=== PATIENT | female | born 1960 | race Caucasian/White ===

== ENCOUNTER 2019-12-06 13:39 | Inpatient (IN) | payer BC, OTHER ==
[~2019-12-06] VITALS: Ht 153.2 cm; Wt 52.2 kg
--- OUTSIDE RECORDS SUMMARY | 2019-12-06 13:42 | XMS REPORT ---
Author Author Remedios Escobar Organization [employer] Address Unknown Phone Unavailable Care Team Providers Care Teller Vault Name Role Phone Ivonne Escobar CP Unavailable Allergies No Known Allergies Problems Problem Type Condition Code Onset Dates Condition Statu s Problem History of right mastectomy Z90.11 Active Problem Smoker F17.200 Active Medications No Known Medications Results No Known Results Summary Purpose [employer] Submission
--- OUTSIDE RECORDS SUMMARY | 2019-12-06 13:42 | XMS REPORT ---
Author Author Remedios Escobar Organization [employer] Address Unknown Phone Unavailable Care Team Providers Care Lime Hide Inspector Name Role Phone Ivonne Escobar CP Unavailable Allergies No Known Allergies Problems Problem Type Condition Code Onset Dates Condition Statu s Problem History of right mastectomy Z90.11 Active Problem Smoker F17.200 Active Medications No Known Medications Results No Known Results Summary Purpose [employer] Submission
--- OUTSIDE RECORDS SUMMARY | 2019-12-06 13:42 | XMS REPORT ---
Author Author Remedios Escobar Organization [employer] Address Unknown Phone Unavailable Care Team Providers Care Spark Tester Name Role Phone Ivonne Escobar CP Unavailable Allergies No Known Allergies Problems Problem Type Condition Code Onset Dates Condition Statu s Problem History of right mastectomy Z90.11 Active Problem Smoker F17.200 Active Medications Medication Code System Code Instructions Start Date End Date Status Dosage Cipro [facility] 22071328910 250 MG Orally twice a day (bid) MarApr 13, 2018 Active 1 tablet Results No Known Results Summary Purpose [employer] Submission
--- OUTSIDE RECORDS SUMMARY | 2019-12-06 13:42 | XMS REPORT ---
Author Author Remedios Escobar Organization [employer] Address Unknown Phone Unavailable Care Team Providers Care Harness Cutter Name Role Phone Ivonne Escobar CP Unavailable Allergies, Adverse Reactions, Alerts Substance Reaction Event Type N.K.D.A. Info Not Available Non Drug Allergy Problems Problem Type Condition Code Onset Dates Condition Statu s Problem History of right mastectomy Z90.11 Active Assessment Dizziness R42 Active Problem Smoker F17.200 Active Assessment Chronic intractable headache, unspecified headache typ e R51 Active Medications Medication Code System Code Instructions Start Date End Date Status Dosage Cipro [facility] 07931617968 250 MG Orally twice a day (bid) MarApr 13, 2018 Active 1 tablet Lecithin [facility] 26286-[address]409 500 MG Orally Active as d irected Vitamin E [facility] 19210457587 200 UNIT Orally Once a day Active 1 capsule Multi For Her 50+ ND 43968511329 - Orally [place] [address] 200 MG Orally Once a day Act shellie 1 capsule with a meal [id number] [facility] 50684307997 1 MG Orally Active as d irected Vital Signs Date/Time: Apr 08, 2018 BMI 20.48 Index Weight 112 lbs Height 62 in Temperature 98.5 F Cardiac Monitoring Heart Rate 83 /min Blood Pressure Diastolic 80 mm Hg Blood Pressure Systolic 122 mm Hg Results No Known Results Summary Purpose [employer]Works Submission
--- OUTSIDE RECORDS SUMMARY | 2019-12-06 13:42 | XMS REPORT | Continuity of Care Document ---
Author Author [employer] Organization [employer] Address Unknown Phone Unavailable Care Team Providers Care Ground Worker Name Role Phone [employer] Unavailable Un available Problems Problem Status Onset Date Classification Date Reported Comments Source History of right mastectomy Ac tive Problem [facility] Smoker Active Problem 04/15/2018 [facility] Dizziness Active Diagnosis 04/11/2018 [facility] Chronic intractable headache, unspecified headache typ e Active Diagnosis 04/11/2018 [facility] Medications Medication Details Route Status Patient Instructions Ordering Provider Order Date Source Cipro 1 tablet Orally Active 250 MG Orally twice a d ay (bid) Gregg Pulido 04/06/2018 [facility] Lecithin as directed Orally Active 500 MG Orally Gregg Pulido [facility] Vitamin E 1 capsule Orally Active 200 UNIT Orally Once a day Gregg Pulido [facility] Multi For Her 50+ not defined Orally Active - Orally Gregg Pulido [facility] Co Q 10 1 capsule with a meal Orally Active 200 MG Orally Once a day Gregg Pulido [facility] [id number] as directed Orally Active 1 MG Orally Gergg Pulido [facility] Allergies, Adverse Reactions, Alerts Substance Category Reaction Severity Reaction type Status Date Reported Comments Source N.K.D.A. Adverse Reaction Info Not Available Adverse Reaction Active 04/08/2018 [facility] Immunizations No Data Provided for This Section Results No Data Provided for This Section Pathology Reports No Data Provided for This Section Diagnostic Reports No Data Provided for This Section Consultation Notes No Data Provided for This Section Discharge Summaries No Data Provided for This Section History and Physicals No Data Provided for This Section Vital Signs Vital Sign Value Date Comments Source Weight 112 04/08/2018 [facility] Height 62 1 [facility] Temperature Oral (F) 98.5 F 04/08/2018 [facility] Heart Rate 83 04/08/2018 [facility] Diastolic (mm Hg) 80 04/08/2018 [facility] Systolic (mm Hg) 122 04/08/2018 [facility] Encounters No Data Provided for This Section Procedures No Data Provided for This Section Assessment and Plan No Data Provided for This Section Plan of Care No Data Provided for This Section Social History No Data Provided for This Section Family History No Data Provided for This Section Advance Directives No Data Provided for This Section Functional Status No Data Provided for This Section
--- OUTSIDE RECORDS SUMMARY | 2019-12-06 13:42 | XMS REPORT ---
Author Author Remedios Escobar Organization [employer] Address Unknown Phone Unavailable Care Team Providers Care Marble Rubber Name Role Phone Ivonne Escobra CP Unavailable Allergies No Known Allergies Problems Problem Type Condition Code Onset Dates Condition Statu s Problem History of right mastectomy Z90.11 Active Problem Smoker F17.200 Active Medications No Known Medications Results No Known Results Summary Purpose [employer]ClinicalWorks Submission
--- OUTSIDE RECORDS SUMMARY | 2019-12-06 13:42 | XMS REPORT | Continuity of Care Document ---
Author Author [facility] t Organization [facility] Address [address] [place] [address] Phone Unavailable Care Team Providers Care Junior Engineer Name Role Phone Unavailable Unavailable Payers Payer Name Policy Type Policy Number Effective Date Expiration Date S ource Problems Condition Name Condition Details Condition Category Status Onset Date Resolution Date Last Treatment Date Treating Clinician Comments Source History of right mastectomy Hi story of right mastectomy Active Problem 04/15/2018 [facility] Problem Active 2018-04-15 02:02:12 Lluvia Aguiar Smoker Smok er Active Problem 04/15/2018 [facility] Problem Active 2018-04-15 02:02:12 Mary Aguiar Dizziness Dizz iness Active Diagnosis 04/11/2018 [facility] Diagnosis Active 2018-04-11 02:02:30 Mary Aguiar Chronic intractable headache, unspecified headache typ e Chronic intractable headache, unspecified headache type Active Diagnosis 04/11/2018 [facility] Diagnosis Active 2018-04-11 02:02:30 Mary Aguiar Allergies, Adverse Reactions, Alerts Allergy Name Allergy Type Status Severity Reaction(s) Onset Date Inacti ve Date Treating Clinician Comments Source N.K.D.A. N.K.D.A. Active Info Not Available 2018-04-08 00:00:00 Mary Aguiar No Known Allergies DA Active U 2010-12-20 00:00:00 [facility] Medications Ordered Medication Name Filled Medication Name Start Date Stop Da te Current Medication? Ordering Clinician Indication Dosage Frequency Signature (SIG) Comments Components Source Lecithin 2018-04-11 02:02:30 Yes Iovnne Pulido as directed Mary Aguiar Vitamin E 2018-04-11 02:02:30 Yes Ivonne Pulido 1 capsule [facility] Multi For Her 50+ 2018-04-11 02:02:30 Yes Ivonne Pulido not defined [facility] Co Q 10 2018-04-11 02:02:30 Yes Ivonne Pulido 1 capsule with a meal [facility] [id number]-[id number] 2018-04-11 02:02:30 Yes Ivonne Pulido as directed [facility] Cipro 2018-04-06 00:00:00 Yes Ivonne Pulido 1 tablet [facility] Vital Signs Vital Name Observation Time Observation Value Comments Source Weight 2018-04-08 14:15:00 [facility] Height 2018-04-08 14:15:00 [facility] Temperature Oral (F) 2018-04-08 14:15:00 98.5 F [facility] Heart Rate 2018-04-08 14:15:00 [facility] Diastolic (mm Hg) 2018-04-08 14:15:00 [facility] Systolic (mm Hg) 2018-04-08 14:15:00 [facility] Procedures This patient has no known procedures. Encounters Start Date/Time End Date/Time Encounter Type Admission Type [facility] Care Department Encounter ID Source 2018-04-11 14:15:00 2018-04-11 14:15:00 [facility] [id number] [facility] 2018-04-10 10:56:00 2018-04-10 10:56:00 [facility] [id number] [facility] 2018-04-08 09:15:00 2018-04-08 09:15:00 [facility] [id number] [employer] 2018-04-04 17:43:00 2018-04-04 17:43:00 [facility] [id number] [employer] 2018-03-21 16:52:00 2018-03-21 16:52:00 [facility] [id number] [facility] Results This patient has no known results.
[2019-12-06] MEDS ORDERED: IBUPROFEN 400 MG TAB PO ONE (15:00)
[2019-12-06] MEDS ORDERED: IBUPROFEN 600 MG TAB ONE (15:03)
--- NOTE | 2019-12-06 15:35 | Emergency Department Note ---
History of Present Illnes History of Present Illness Chief Complaint: Extremity Trauma/Pain History of Present Illness This is a 59 year old female, with a history of hypertension and remote history of breast cancer, who fell while walking down the steps out of the RV, injuring her left knee. The fall occurred just prior to arrival. Patient states that she was stepping out of the RV, when her shoe slipped, causing her left leg to derek, and she fell down, landing on the left knee onto a gravel surface. Patient had pain immediately, and she has been unable to weight-bear on the left leg since the fall. Her spouse had to carry her into the car, and he needed assistance in getting her out of the car once they arrived to the ED. Patient has had no recent fractures, and she does not recall the date of her last bone density. She has had an L2 and L4 vertebral fracture many years ago, that were both related to trauma. She denies any numbness or tingling of the left lower extremity. She states that the "left knee feels tight." Historian: Patient, Family Member (spouse) Arrival Mode: Car Liturgical Music Director Required: No Onset (how long ago): hour(s) (1) Location: left lateral knee Quality: aching, tight, painful Radiation: Reports non-radiation Severity: moderate Onset quality: sudden Duration (how long): hour(s) (1) Timing of current episode: constant Progression: unchanged Chronicity: new Context: Reports trauma/injury (see history of present illness); Denies recent illness, Denies recent surgery, Denies recent immobilization, Denies recent travel, Denies hx of DVT/PE Relieving factors: none Exacerbating factors: movement Associated symptoms: Reports denies other symptoms Treatments prior to arrival: none Risk factors: smoker, post-menopausal Past Medical/Family History Physician Review I have reviewed the patient's past medical and family history. Any updates have been documented here. Past Medical History Recent Fever: No Clinical Suspicion of Infectio: No New/Unexplained Change in Ment: No Past Medical History: Hypertension, Cancer (right breast cancer in 1998status post lumpectomy, chemotherapy, and radiation.) Past Surgical History: Lumpectomy (right breast) Other Surgery: L2 and L4 vertebral fractures Social History Smoking Cessation: Current every day smoker (1/4 pack per day for the past 30 years) Counseling Performed: Yes Alcohol Use: Daily Any Illegal Drug Use: No TB Exposure/Symptoms: No Physically hurt or threatened: No Family History Family history of heart diseas: No Other Last Tetanus: > 5 yrs Any Pre-Existing Lines (PICC,: No Is patient up to date on immun: Yes Review of Systems Review of Systems Constitutional: Denies chills, Denies fever, Denies weakness EENTM: Reports no symptoms Cardiovascular: Denies chest pain, Denies palpitations Respiratory: Reports no symptoms; Denies chest congestion, Denies cough, Denies pain on inspiration Gastrointestinal: Reports no symptoms Genitourinary: Reports no symptoms Musculoskeletal: Reports as per HPI Integumentary: Reports no symptoms Neurological: Reports no symptoms; Denies numbness, Denies paresthesia, Denies tingling Psychological: Reports no symptoms Hematological/Lymphatic: Reports no symptoms Review of other systems: All other systems negative Physical Exam Related Data Allergies: Coded Allergies: No Known Allergies (Unverified , 12/06/19) Vital signs reviewed: Yes Physical Exam CONSTITUTIONAL Constitutional: Present well-developed, Present well-nourished; Absent distressed HENT HENT: Present normocephalic, Present atraumatic, Present oropharynx clear/moist, Present nose normal HENT L/R: Present left ext ear normal, Present right ext ear normal EYES Eyes: Reports PERRL, Reports conjunctivae normal NECK Neck: Present ROM normal; Absent cervical adenopathy PULMONARY Pulmonary: Present effort normal, Present breath sounds normal CARDIOVASCULAR Cardiovascular: Present regular rhythm, Present heart sounds normal, Present intact distal pulses, Present capillary refill normal, Present normal rate GASTROINTESTINAL Abdominal: Present soft, Present nontender, Present bowel sounds normal GENITOURINARY Genitourinary: Present exam deferred SKIN Skin: Present warm, Present dry MUSCULOSKELETAL Musculoskeletal: Present tenderness (tenderness to palpation of the soft tissue of the left knee, especially lateral to the patella), Present swelling (arch ap pearing, spongy hematoma just lateral to the left patella, without warmth or redness, with surrounding soft tissue edema; patient will not flex or extend her left lower extremity to any significant degree; no visible dislocation) NEUROLOGICAL Neurological: Present alert, Present oriented x 3 PSYCHOLOGICAL Psychological: Present mood/affect normal, Present behavior normal, Present judgement normal Results Laboratory Laboratory CBC - normal WBC, H/H; CMP - nl except Cl = 97, Cr = 0.4, BUN = 4; Lab results reviewed: Yes Imaging Imaging results reviewed: Yes Impressions [place] [address] Patient Name: KETTY KING MR #: [id number] : 1960 Age/Sex: 59/F Req #: [id number] Adm Physician: Ordered by: NOE GROSS MD Report #: [id number] [facility] Room/Bed: Procedure: [id number] HOPD/KNEE 3VW LT - HOPD Exam Date: 12/06/19 Exam Time: 1445 REPORT STATUS: Signed Left knee 3 - views HISTORY: Traumatic injury. Fell out of RV COMPARISON: None FINDINGS: A markedly comminuted fracture of the proximal tibial epiphysis with intra-articular extension, and depression of the lateral tibial plateau of approximately 1.5 cm, with lateral displacement of the larger fracture fragment. There is also a displaced fracture of the proximal fibular metadiaphysis. There is a large knee lipohemarthrosis. IMPRESSION: 1. Comminuted intra-articular fracture of the proximal tibial diaphysis with depression of the lateral fracture fragment. 2. Displaced fracture of the proximal fibular metadiaphysis. 3. Large lipohemarthrosis. Signed by: Dr. Stewart Larson M.D. on 12/06/2019 3:48 PM Dictated By: KISHAN LARSON MD, MD [id number] Transcribed By: ELENA on 12/06/19 154 COPY TO: NOE GROSS MD~ [address], [place], [place] [address] Patient Name: KETTY KING MR #: [id number] : 1960 Age/Sex: 59/F Req #: [id number] Adm Physician: Ordered by: NOE GROSS MD Report #: [id number] Location: [facility] Room/Bed: Procedure: [id number] HOPD/CT LOWER EXTEM LT WITH-HOPD Exam Date: 12/06/19 Exam Time: 1635 REPORT STATUS: Signed CT scan of the LEFT KNEE, WITHOUT injected contrast. TECHNIQUE: Standard departmental protocols were used. Sagittal and coronal reformatted images were obtained. DLP: 106.86 Dose reduction techniques used: Automated exposure control, adjustment of the mAs and/or kVp according to patient size, standardized low-dose protocol, and/or iterative reconstruction technique. HISTORY: Trauma. Fractures of the tibia and fibula. COMPARISON: Correlation with X-ray series from the same day. FINDINGS: Bone: Comminuted fracture of the proximal tibial diaphysis with intra-articular extension. There is depression of up to 1.5 cm with lateral displacement of the larger lateral to the lateral fragment. Comminuted fracture of the medial plateau is also displaced to a lesser degree. Extension into the inter-articular spine. A mildly displaced comminuted impaction fracture of the proximal fibular metadiaphysis (fibular neck) is also present. Mild generalized osteopenia. Joint: .Joint spaces are relatively preserved Soft Tissues: There is a large knee lipohemarthrosis. Subcutaneous edema. IMPRESSION: Unremarkable examination. Signed by: Dr. Stewart Larson M.D. on 12/06/2019 5:40 PM Dictated By: KISHAN LARSON MD, MD 39 Transcribed By: ELENA on 12/06/191739 COPY TO: NOE GROSS MD~ Diagnostics Tests Diagnostic test(s) reviewed: Yes Procedures 12 Lead ECG Interpretation ECG Interpretation : ECG: ECG 1 Liturgical Music Director: Interpreted by ED physician Date: Dec 06, 2019 Time: 18:05 Prior ECG tracings: not available for review Rhythm: sinus rhythm Rate: normal BPM: 81 QRS axis: indeterminate ST segments normal: Yes T waves normal: Yes Clinical Impression: abnormal ECG Assessment & Plan Medical Decision Making [facility] 1600case discussed with Dr. Basilio, who reviewed the patient's films and recommended hospital admission for surgical repair in the morning, since patient is unable to stand or utilize crutches, due to the pain as result of the left tibial plateau and fibula fracture. He also recommended CT of the knee, but will assist in surgical management. 1710case discussed with Dr. Tobias Beard, matrix inspector field service consultant, who will admit patient to the hospital and follow with orthopedics. Discuss with the patient and spouse, the significant scalp of her fractures, and patient is agreeable to hospital admission for further management. Assessment & Plan Final Impression: (1) Tibial plateau fracture, left (2) Fibula fracture (3) Fall (4) Hypertension Depart Disposition: ADMITTED Medications in the ED Ibuprofen 600 mg ONCE ONCE PO Last administered on 12/06/19at 14:55; Admin Dose 600 MG; Start 12/06/19 at 15:00; Stop 12/06/19 at 15:02; Status DC Ibuprofen 600 mg STK-MED ONCE .ROUTE ; Start 12/06/19 at 15:03; Stop 12/06/19 at 15:00; Status DC NOE GROSS MD Dec 06, 2019 15:34
[2019-12-06] MEDS ORDERED: HYDROCODONE/APAP 5MG-325MG TAB ONE ×2 (15:44→18:11)
--- NOTE | 2019-12-06 15:51 | Diagnostic Imaging Report ---
Left knee 3 - views HISTORY: Traumatic injury. Fell out of RV COMPARISON: None FINDINGS: A markedly comminuted fracture of the proximal tibial epiphysis with intra-articular extension, and depression of the lateral tibial plateau of approximately 1.5 cm, with lateral displacement of the larger fracture fragment. There is also a displaced fracture of the proximal fibular metadiaphysis. There is a large knee lipohemarthrosis. IMPRESSION: 1. Comminuted intra-articular fracture of the proximal tibial diaphysis with depression of the lateral fracture fragment. 2. Displaced fracture of the proximal fibular metadiaphysis. 3. Large lipohemarthrosis. Signed by: Dr. Stewart Rodgers M.D. on 12/06/2019 3:48 PM
[2019-12-06] MEDS ORDERED: SODIUM CHLORIDE FLUSH 10 ML SYR INJ PRN (17:15)
[2019-12-06] MEDS ORDERED: HYDROMORPHONE 1MG/1ML INJ IV PRN (17:15)
--- NOTE | 2019-12-06 17:32 | NUR ---
ORTHOPEDIC CONSULTATION Discussed case with patient over phone. Patient is a 59 year old community ambulator who had a mechanical fall today and presented to the ED with left lower leg pain. She denies pain in any other extremity. No numbness, paresthesias or loss of distal motor function. Pain localized to knee. Denies pain in any other extremity PMdHx: Breast CA, HTN Alleriges: NKDA SurgHx: Breast CA FamHx: Non-contributory SocHx: 1/3 ppd of Tob Cigarettes, ~ 8 beers a day, No drug use Meds: See Reconciliation Xrays - Comminuted intra-articular Left Bicondylar Tibial Plateau Fracture 59 year old left intra-articular bicondylar displaced left tibial plateau fracture -Plan for arthroscopically assisted open reduction internal fixation of left tibial plateau -NWB -Rest, Ice & Elevation -Analgesics -NPO except meds after midnight -Hold anticoagulation after midnight -IVF while NPO -Follow up CBC, CMP, PT/INR/PTT, Type & Screen, UA, EKG, Chest Xrays, Consent -All questions answered. Kathryn Basilio, DO [facility].
--- NOTE | 2019-12-06 17:43 | Diagnostic Imaging Report ---
CT scan of the LEFT KNEE, WITHOUT injected contrast. TECHNIQUE: Standard departmental protocols were used. Sagittal and coronal reformatted images were obtained. DLP: 106.86 Dose reduction techniques used: Automated exposure control, adjustment of the mAs and/or kVp according to patient size, standardized low-dose protocol, and/or iterative reconstruction technique. HISTORY: Trauma. Fractures of the tibia and fibula. COMPARISON: Correlation with X-ray series from the same day. FINDINGS: Bone: Comminuted fracture of the proximal tibial diaphysis with intra-articular extension. There is depression of up to 1.5 cm with lateral displacement of the larger lateral to the lateral fragment. Comminuted fracture of the medial plateau is also displaced to a lesser degree. Extension into the inter-articular spine. A mildly displaced comminuted impaction fracture of the proximal fibular metadiaphysis (fibular neck) is also present. Mild generalized osteopenia. Joint: .Joint spaces are relatively preserved Soft Tissues: There is a large knee lipohemarthrosis. Subcutaneous edema. IMPRESSION: Unremarkable examination. Signed by: Dr. Stewart Rodgers M.D. on 12/06/2019 5:40 PM
[2019-12-06] MEDS ORDERED: HYDROCODONE/APAP 5MG-325MG TAB PO ONE ×2 (17:45→18:45)
[2019-12-06 18:07] LABS: INR 0.89; PROTHROMBIN TIME 12.6 seconds (11.9-14.5)
[2019-12-06 18:08] LABS: PARTIAL THROMBOPLASTIN TIME 26.5 seconds (23.8-35.5)
[2019-12-06] MEDS ORDERED: ONDANSETRON HCL INJ 2MG/ML 2ML 2 MG/ML VIAL IV NR (19:00)
[2019-12-06] MEDS ORDERED: MORPHINE SULFATE 2 MG/ML SYR 1ML IV NR (19:00)
--- NOTE | 2019-12-06 19:12 | NUR ---
Report to GABRIELLE Rosales
[2019-12-06] MEDS ORDERED: MORPHINE SULFATE INJ 4 MG/ML INJ 1ML ONE (19:38)
[2019-12-06] MEDS ORDERED: ONDANSETRON HCL INJ 2MG/ML 2ML 2 MG/ML VIAL ONE (19:38)
[2019-12-06 20:00] VITALS: BP 109/78
[2019-12-06] MEDS: ONDANSETRON HCL INJ 2MG/ML 2ML 2 MG/ML VIAL IV PRN (20:50)
[2019-12-06 21:10] LABS: BASOPHILS # (AUTO) 0.1 (0.0-0.1); BASOPHILS % 0.6 % (0.0-1.0); EOSINOPHILS # (AUTO) 0.1 (0.0-0.4); EOSINOPHILS % 1.1 % (0.0-6.0); HEMATOCRIT 31.2 % (34.2-44.1); LYMPHOCYTES % 11.5 % (18.0-39.1); MEAN CORPUSCULAR HEMOGLOBIN 36.7 pg (28-32); MEAN CORPUSCULAR HGB CONC 35.3 g/dL (31-35); MONOCYTES # (AUTO) 0.8 (0.2-0.8); MONOCYTES % 8.4 % (4.4-11.3); NEUTROPHILS % 78.1 % (38.7-80.0); PLATELET COUNT 182 x10e3/uL (140-360); RED CELL DISTRIBUTION WIDTH 12.2 % (11.7-14.4)
--- NOTE | 2019-12-06 21:12 | Diagnostic Imaging Report ---
EXAMINATION: CHEST SINGLE (NOT PORTABLE) INDICATION: ^preop ^[id number] ^2024 COMPARISON: None FINDINGS: AP view TUBES and LINES: None. LUNGS: Lungs are well inflated. Minimal left basilar haziness. PLEURA: No pleural effusion or pneumothorax. HEART AND MEDIASTINUM: The cardiomediastinal silhouette is unremarkable. Aorta is mildly calcified and tortuous. BONES AND SOFT TISSUES: No acute osseous lesion. Right axillary surgical clips. UPPER ABDOMEN: No free air under the diaphragm. IMPRESSION: Minimal left basilar haziness, could represent subsegmental atelectasis or developing pneumonia in the appropriate clinical context. Signed by: Dr. Ward Murillo MD on 12/06/2019 9:09 PM
[2019-12-06 21:20] VITALS: BP 128/78
[2019-12-06 21:20] LABS: PARTIAL THROMBOPLASTIN TIME 27.4 seconds (23.8-35.5)
[2019-12-06 21:26] LABS: INR 0.94; PROTHROMBIN TIME 13.1 seconds (11.9-14.5)
[2019-12-06 21:28] LABS: ALBUMIN 3.7 g/dL (3.5-5.0); ALBUMIN/GLOBULIN RATIO 1.2 (0.8-2.0); ALKALINE PHOSPHATASE 64 IU/L (40-150); BLOOD UREA NITROGEN 5 mg/dL (7-26); BUN/CREATININE RATIO 9 (6-25); CALCIUM 9.1 mg/dL (8.4-10.2); CARBON DIOXIDE 20 mmol/L (22-29); CHLORIDE 97 mmol/L (98-107); CREATININE, SERUM 0.56 mg/dL (0.57-1.11); EST GLOMERULAR FILTRATION RATE > 60 ML/MIN (60-); GLUCOSE 125 mg/dL (74-118); SODIUM 131 mmol/L (136-145)
[2019-12-06 21:31] LABS: ALANINE AMINOTRANSFERASE < 6 IU/L (0-55)
--- NOTE | 2019-12-06 21:45 | NUR ---
patient received ordered dilaudid for pain. patient stated nausea and dizziness, patient denies sob, or any related anaphylactic shock s/s, vitals checked bp 128/77, hr 88, oxygen [address] Beard was called and made aware and ordered to stop dilaudid and place order for morphine 2mg q4hrs and also place in order for phenergan 12.5mg iv q6hrs prn. Another nurse was called to come assess patient, no imminent life threatening s/s at this time, bp monitor at bed side and monitoring vitals at bed side.
[2019-12-06] MEDS ORDERED: PROMETHAZINE 12.5MG/ NACL 0.9% 12.5 MG/50 ML BAG IV PRN (22:30)
[2019-12-06] MEDS ORDERED: SODIUM CHLORIDE 0.9% 250ML 250 ML ONE (22:45)
[2019-12-07] VITALS (7 sets, daily range): BP systolic 118–144; BP diastolic 73–86
[2019-12-07] MEDS ORDERED: HEPARIN SOD (PORCINE) 5,000 UNIT/ML VIAL SC ONE (00:30)
[2019-12-07] MEDS: MORPHINE SULFATE 2 MG/ML SYR 1ML IV PRN ×6 (00:54→22:25)
--- NOTE | 2019-12-07 05:50 | NUR ---
H&P cc: fall with fracture HPI: 59yoF, PCP none, had a fall due to tripping; Resulted in fracture. PMH: right breast cancer s/p right lumpectomy and chemoXRT, HTN PSHx: right lumpectomy 1998 Allergies; see emr FH/SH; 1/3ppd cigs; single meds; see MAR ROS: no f/c/s/N/V/D/KAMINSKI/cp/sob/skin rash/back pain/confusion v/s; revd PE tired appearing anicteric ns1s2 mod bs soft nt nd left leg with brace; some leg edema on left leg skin dry flat affect a&ox3; labs/meds revd A/P: 59yoF Elderly fall- PT; check UA Left tibia fx- sx consulted; Oscal; DEXA outpt Left fibula fx- as above Hyponatremia- rehydrate Dehydration- rehydrate Hypochloremia- rehydrate Prop: will need AC after sx dispo: Cardiac for preOp eval; CHeck UA Tobias Beard MD, PhD.
[2019-12-07] MEDS ORDERED: ACETAMINOPHEN 325 MG TAB PO PRN (06:00)
[2019-12-07] MEDS ORDERED: ZOLPIDEM TARTRATE 5 MG TAB PO PRN (06:00)
[2019-12-07] MEDS ORDERED: TRAMADOL HCL 50 MG TAB PO PRN (06:00)
[2019-12-07] MEDS ORDERED: DOCUSATE SODIUM 100 MG CAP PO PRN (06:00)
--- NOTE | 2019-12-07 06:12 | NUR ---
consult to Dr. Camacho called
--- NOTE | 2019-12-07 07:03 | NUR ---
bedside shift report received from equipment scheduler nurse. pt awake, in stable condition, no complaints at this time. will continue to monitor.
[2019-12-07] MEDS: SODIUM CHLORIDE 0.9% 1000ML 1,000 ML IV SCH (07:25)
[2019-12-07 08:18] LABS: CLARITY,URINE CLEAR (CLEAR); COLOR,URINE YELLOW (YELLOW)
[2019-12-07 08:19] LABS: BILIRUBIN,URINE NEGATIVE (NEGATIVE); KETONES,URINE 1+ (NEGATIVE); LEUKOCYTE ESTERASE ,URINE TRACE (NEGATIVE); NITRITE,URINE NEGATIVE (NEGATIVE); PROTEIN,URINE DIPSTICK NEGATIVE (NEGATIVE); URINE UROBILINOGEN 0.2 mg/dL (0.2 - 1)
[2019-12-07 08:34] LABS: BACTERIA,URINE MODERATE /HPF; EPITHELIAL CELLS,URINE MANY /LPF; RBC,URINE 0-5 /HPF (0-5)
[2019-12-07] MEDS: METOPROLOL SUCCINATE 25 MG TAB XL PO SCH (09:26)
[2019-12-07] MEDS: OYST-CAL-D 500MG TABLET PO SCH ×3 (09:27→22:24)
[2019-12-07] MEDS ORDERED: CLONIDINE HCL0.1 MG PO (09:33)
--- NOTE | 2019-12-07 12:48 | Consultation ---
DATE OF CONSULTATION: 12/07/2019 Cardiology Consultation CONSULTING PHYSICIAN: Sukhwinder Angel MD, Interventional Cardiology. REASON FOR CONSULTATION: Perioperative cardiovascular evaluation. HISTORY OF PRESENT ILLNESS: Ms. Caballero is a pleasant 59-year-old woman with history of tobacco abuse, history of breast cancer, status post lumpectomy, chemotherapy and radiation in 1998 to right breast, and hypertension, who presents with mechanical blunt trauma to the left knee after she was walking, stepping out her RV, her shoe slipped and created bending force to the left knee and fall. She was observed to have fractures and has been undergoing evaluation by Orthopedic Surgery for surgical repair for comminuted fracture of proximal tibial diaphysis and intra-articular extension. She has chronic dyspnea on exertion to moderate activity, which has not changed in pattern over the last six months. She smokes a pack every three days. She denies any exertional chest discomfort. She denies any palpitations, syncope or lightheadedness. She denies any orthopnea, lower extremity edema, or paroxysmal nocturnal dyspnea. REVIEW OF SYSTEMS: A 12-system review is otherwise negative except for as noted above. ALLERGIES: NO KNOWN DRUG ALLERGIES. PAST MEDICAL HISTORY: Remarkable for hypertension and breast cancer. SOCIAL HISTORY: Tobacco abuse. Denies drug use. Occasional alcohol use. FAMILY HISTORY: Noncontributory. PHYSICAL EXAMINATION: VITAL SIGNS: Temperature 98.4, heart rate 91, respiratory rate 20, blood pressure 144/77, O2 saturation 96% on room air. GENERAL: No acute distress, alert. NECK: No JVD. No carotid bruits. CHEST: Clear to auscultation. CARDIOVASCULAR: Regular rate and rhythm. Normal S1 and S2. No S3. No S4. No murmurs, no rubs. ABDOMEN: Soft, nondistended. Bowel sounds positive. EXTREMITIES: Left leg edema, immobilized with left knee in place. CARDIOVASCULAR MEDICATIONS: Reviewed. LABORATORY DATA: Studies reviewed. White blood cells 9, hemoglobin 11, platelets 182. INR 0.9, creatinine 0.5, potassium 4, bicarbonate 20. Coronavirus PCR is pending. IMAGING STUDIES: Reviewed. ASSESSMENT: 1. A 59-year-old woman presents with comminuted left tibial fracture extending into knee joint resulting in inability to ambulate. 2. Hypertension. 3. Dyspnea on exertion in the setting of tobacco abuse. 4. Perioperative cardiovascular evaluation. RECOMMENDATIONS: 1. Initiate metoprolol 25 mg daily for perioperative. 2. Given the patient's dyspnea on exertion an echocardiogram has been requested. Moderate risk for adverse cardiovascular outcomes with noncardiac surgery. Further evaluation for dyspnea on exertion postoperatively as outpatient is advised including pulmonary function test and consideration of further cardiac evaluation depending on these findings. No unstable cardiac conditions currently identified. Sukhwinder Angel MD AFMichelle/MODRuthy /[id number]
[2019-12-07] MEDS ORDERED: ROCURONIUM BROMIDE 10 MG/ML 5ML VIAL IV ONE (15:04)
[2019-12-07] MEDS ORDERED: ONDANSETRON HCL INJ 2MG/ML 2ML 2 MG/ML VIAL ONE (15:04)
[2019-12-07] MEDS ORDERED: KETOROLAC TROMETHAMINE 30 MG/ML VIAL ONE (15:04)
[2019-12-07] MEDS ORDERED: PROPOFOL IV EMULSION 10 MG/ML 20 ML VIAL ONE (15:04)
[2019-12-07] MEDS ORDERED: SEVOFLURANE INHAL SOLN 250 ML PEN BTL ONE (15:04)
[2019-12-07] MEDS ORDERED: DEXAMETHASONE SOD PHOS INJ 4 MG/ML VIAL ONE (15:04)
[2019-12-07] MEDS ORDERED: EPHEDRINE SULFATE INJ 50 MG/ML VIAL ONE (15:04)
[2019-12-07] MEDS ORDERED: ACETAMINOPHEN 1000 MG/100 ML IV ONE (15:04)
[2019-12-07] MEDS ORDERED: FENTANYL CITRATE/PF 100MCG/2 ML INJ ONE ×2 (15:16→21:42)
[2019-12-07] MEDS ORDERED: MIDAZOLAM HCL 2 MG/2 ML VIAL ONE (15:16)
--- NOTE | 2019-12-07 17:22 | NUR ---
Patient with tibial plateau fracture and plan for arthroscopically assisted open reduction internal fixation of left tibial plateau with Dr. Basilio. Will hold therapy until after procedure and when new orders received. Will need mobility restrictions, if any, and weight bearing orders. Thank You. Addendum: 12/07/19 at 1724 by JOAQUÍN NEW PT Amended: Links added.
[2019-12-07] MEDS ORDERED: BUPIVACAINE HCL 0.5% INJ 30 ML VIAL INJ ONE (18:10)
--- NOTE | 2019-12-07 18:13 | NUR ---
ORTHOPEDIC CONSULTATION Patient is a 59 year old community ambulator who had a mechanical fall today and presented to the ED with left lower leg pain. She denies pain in any other extremity. No numbness, paresthesias or loss of distal motor function. Pain localized to knee. Denies pain in any other extremity PMdHx: Breast CA, HTN Alleriges: NKDA SurgHx: Breast CA FamHx: Non-contributory SocHx: 1/3 ppd of Tob Cigarettes, ~ 8 beers a day, No drug use Meds: See Reconciliation Gen: AAO x 3, NAD Left Lower Extremity: No open lesions or sores, Positive swelling Motor: + EHL, FHL, TA, G/S Sensation grossly intact to light touch Pulses + DP, Post tib Compartments soft Negative calf tenderness Xrays - Comminuted intra-articular Left Bicondylar Tibial Plateau Fracture 59 year old left intra-articular bicondylar displaced left tibial plateau fracture -Plan for arthroscopically assisted open reduction internal fixation of left tibial plateau -NWB -Rest, Ice & Elevation -Analgesics -NPO except meds after midnight -Hold anticoagulation after midnight -IVF while NPO -Follow up CBC, CMP, PT/INR/PTT, Type & Screen, UA, EKG, Chest Xrays, Consent -All questions answered. Kathryn Basilio, DO [facility].
--- NOTE | 2019-12-07 21:13 | NUR ---
ORTHOPEDICS OPERATIVE NOTE PREOPERATIVE DIAGNOSES: Left Knee Intra-articular Displaced Bicondylar Tibial Plateau Fracture POSTOPERATIVE DIAGNOSES: Left Knee Intra-articular Displaced Bicondylar Tibial Plateau Fracture PROCEDURE: Left Tibial Plateau Open Reduction Internal Fixation, Knee Arthroscopic Tricompartmental Extensive, Debridement Tricompartmental Chondroplasty, and Partial Tricompartmental Synovectomy, Flouroscopic interpretation SURGEON: Kathryn Basilio DO GENERAL MANAGER FARM: NANCY Estrella ANESTHESIA: General COMPLICATIONS: None TOURNIQUET: 120 minutes EBL: Minimal INDICATIONS: Due to persistent pain and limitations on activity combined with findings on exam and imaging, the patient requests surgical treatment. Nonopera tive care and alternative surgical options were reviewed. We agreed that this provided the best risk/benefit profile for this patient, understanding and accepting risks of recurrent/persistent symptoms, infection, bleeding, stiffness, neurological/vascular damage, failure to improve and anesthetic complication (as reviewed by anesthesia service). Also, the patient understands that arthroscopic treatment of articular cartilage lesions provides temporary incomplete relief but that meniscal symptoms should be well addressed. FINDINGS: LEFT Knee Patella Grade 2 Chondromalacia Trochlea - Grade 2 Chondromalacia Lateral Gutter Hematoma & Chondral Debris Medial Gutter Hematoma & Chondral Debris Medial Compartment Femoral - Grade 2 Chondromalacia Tibial - Grade 4 Intra-articular region of chondral loss Medial Meniscus- Intact Cruciate region - Normal Lateral Compartment Femoral -Grade 2 Chondromalacia Tibial -Grade 4 Intra-articular region of chondral loss Lateral Meniscus - Intact Synovium - Hypertrophic & Hyperemic Implant:Krissy Lateral Proximal Tibial Plateau Plate, Cancellous, Cortical and Locking Screws PROCEDURE: With the patient in the supine position with all prominences well padded, general anesthesia was obtained. Sterile prepping and draping were performed. Antibiotics had been given and a time out performed. A lateral S shaped incision was made along the lateral plateau. A submuscular incision down to bone and the lateral musculature was reflected exposing the displaced lateral plateau. The fracture was opened and reduced with a elevator and k wires A bone void was noted and 30 cc of cancellous bone graft and 10 cc of DBM was inserted beneath the fracture site to fill the void and augment healing. Under flouscopic guidance the reduction was obtained and a krissy lateral plateau plate was placed and secured with cortical, cancellous and locking screws. The fracture was found to be stable and in a tolerable position on flouroscopy. The arthroscope was inserted via a small lateral parapatellar tendon incision into the patellofemoral space. Under direct visualization, a medial parapatellar tendon portal was created providing a working portal. Diagnostic arthroscopy was performed and the above findings were noted. Within the patellofemoral space, chondroplasty and extensivie debridement was performed Within the medial compartment, a stable border was demonstrated. There was grade 2-3 chondromalacia, which was debrided to stable borders. Within the intercondylar space, the ACL was visualized and intact The lateral compartment demonstrated a noemL lateral meniscus with grade 2 chondromalacia. This was debrided with an arthroscopic shaver . Chondroplasty was performed on the trochlea to provide a stable border. The joint was extravasated. The incisions were closed ethibond sutures for the fascia, vicryl for the subcutaneous and monocryl for the skin. and more local was injected around the portal sites. Steristrips, Xeroform, 4x4s, ABDs were placed on the portal sites and an Aquacel was placed on the lateral plateau incision and a compressive JASWINDER bandage were applied. The leg was placed in a knee immobilizer. The patient was awakened and transferred to the PACU in satisfactory condition having tolerated the procedure well.
--- NOTE | 2019-12-07 21:40 | NUR ---
RECEIVED REPORT FROM OR.
--- NOTE | 2019-12-07 22:00 | NUR ---
ASSESSMENT DONE.V/S STABLE.AFEBRILE.IV TO LEFT AC IS PATENT.INCISION SITE IS COVERED WITH JASWINDER WRAP.BRACE APPLIED TO LEFT LEG.JELLO GIVEN TO EAT.BED LOCKED AND IN LOWEST POSITION.PHONE AND CALL LIGHT WITHIN REACH.INSTRUCTED TO CALL FOR ASSISTANCE NEEDED.
[2019-12-07] MEDS: ONDANSETRON HCL INJ 2MG/ML 2ML 2 MG/ML VIAL IV PRN (22:25)
[2019-12-07] MEDS: CEFAZOLIN SOD 1 GM/NS 50ML 50 ML IV SCH (22:43)
[2019-12-08] VITALS: BP 139/99
[2019-12-08] MEDS: SODIUM CHLORIDE 0.9% 1000ML 1,000 ML IV SCH (02:00)
[2019-12-08] MEDS: ONDANSETRON HCL INJ 2MG/ML 2ML 2 MG/ML VIAL IV PRN (02:35)
[2019-12-08] MEDS: MORPHINE SULFATE 2 MG/ML SYR 1ML IV PRN ×3 (02:36→13:26)
--- NOTE | 2019-12-08 02:49 | NUR ---
TOLERATES DIET.USES ICS.ELEVATED LOWER EXTREMITY ON PILLOW.INCISION SITE IS DRY.VOIDED BY USING BED PAPPAS.STABLE CONDITION.
[2019-12-08 04:00] VITALS: BP 113/77
[2019-12-08 05:32] LABS: HEMATOCRIT 23.9 % (34.2-44.1); HEMOGLOBIN 8.2 g/dL (12.0-16.0)
[2019-12-08] MEDS: CEFAZOLIN SOD 1 GM/NS 50ML 50 ML IV SCH ×2 (05:43→13:26)
--- NOTE | 2019-12-08 07:09 | NUR ---
BED SIDE SHIFT REPORT GIVEN TO ONCOMING RN.STABLE CONDITION.
--- NOTE | 2019-12-08 07:25 | NUR ---
ORTHOPEDIC PROGRESS NOTE Patient seen & examined resting at bedside. Pain controlled. No acute events overnight VS 98.7 84 18 113/77/ 98% Left Lower Leg In Immobilizer Dressing clean, dry and intact Motor: EHL, FHL, TA, G/S Sensation grossly intact to light touch Pulses + DP, Post tib Compartments soft Negative calf tenderness 8.2/23.9 59 yo F s/p Left Tibial Plateau ORIF POD#1 Analgesics DVT Prophylaxis PT - NWB Left Lower Extremity Switch to ROM Brace May do ROM, CPM encourages Patient orthopedically stable for discharge. Keep dressing until follow up May follow up as outpatient in 2 weeks Recommend Home Health for assistance at home, PT - ROM only. Thank you for the consultation Kathryn Basilio, DO
--- NOTE | 2019-12-08 08:15 | NUR ---
spoke with Dr. Basilio who states pt needs TROM for discharge home; pt otherwise orthopedically stable and can be discharged from his standpoint. spoke with OR nurse who states at this time they only have T-scope braces; paged Dr. Basilio for clarification. awaiting callback.
[2019-12-08 08:20] VITALS: BP 113/77
[2019-12-08] MEDS: OYST-CAL-D 500MG TABLET PO SCH (08:49)
[2019-12-08] MEDS: METOPROLOL SUCCINATE 25 MG TAB XL PO SCH (08:50)
[2019-12-08 08:54] VITALS: BP 122/79
[2019-12-08] MEDS ORDERED: ASPIRIN 325 MG TAB PO SCH (09:00)
--- NOTE | 2019-12-08 09:05 | NUR ---
WENT IN ROOM TO MEET WITH PT ABOUT HOME HEALTH AND HOME P.T. ORDERS PT REALLY DOES NOT WANT HOME HEALTH ; WANTS TO DO IT HERSELF AT HOME P.T. RE-PEPE TODAY POST OP WILL REASSESS AFTER P.T. PEPE NURSE LUCIE WORKING ON GETTING HINGED KNEE BRACE FOR PT CALL PLACED TO DR BARRIGA TO NOTIFY HIM OF PT WISHES CM TO FOLLOW
--- NOTE | 2019-12-08 11:28 | NUR ---
SPOKE WITH DR. MULLEN WHO STATES PT CAN USE T-SCOPE BRACE. WILL APPLY AND HAVE PHYSICAL THERAPY COME EVALUATE PATIENT.
[2019-12-08 11:33] VITALS: BP 112/78
--- NOTE | 2019-12-08 11:38 | NUR ---
D/C summary Principal Dx: Elderly fall- PT; check UA Left tibia fx- sx consulted; Oscal; DEXA outpt Left fibula fx- as above Hyponatremia- rehydrate UTI Dehydration- rehydrate Hypochloremia- rehydrate Secondary Dx: Prop: will need AC after sx dispo: Cardiac for preOp eval; CHeck UA 6-16 s/p ORIF; check urine cx; PT; CM for HH/PT. Pain control meds. d/c home with PT stable d/c>35mins f/u 2-4 days and in 2 weeks Tobias Beard MD, PhD.
[2019-12-08] MEDS ORDERED: ACETAMINOPHEN/CODEINE 300MG - 30MG TAB PO PRN (11:45)
[2019-12-08] MEDS ORDERED: COLACE100 MG PO (11:53)
[2019-12-08] MEDS ORDERED: ULTRAM 50MG50 MG PO (11:53)
[2019-12-08] MEDS ORDERED: TOPROL XL25 MG PO (11:53)
[2019-12-08] MEDS ORDERED: TYLENOL WITH C1 EACH PO (11:53)
[2019-12-08] MEDS ORDERED: KEFLEX500 MG PO (11:56)
--- NOTE | 2019-12-08 11:59 | NUR ---
PT NOW AGREES TO PHYSICAL THERAPY AFTER TALKING TO HER BOYFRIEND VERIFIED ADDRESS AND PHONE NUMBER CORRECT CHOICE LETTER SIGNED FOR [facility] PH [phone] FAX [phone] VERIFIED WITH KYLIE IN INTAKE AT [place] THAT THEY ARE IN NETWORK WITH [employer] EXCHANGE FAXED CLINICALS TO ABOVE FAX CONFIRMATION REC'D ANTICIPATE DC HOME TODAY
[2019-12-08] MEDS ORDERED: ONDANSETRON HCL 4 MG ORAL DISINTEGRATING TAB PO PRN (12:30)
--- NOTE | 2019-12-08 14:30 | NUR ---
CALL BACK FROM KYLIE AT [facility] WHO STATES THEY CANNOT SERVICE PT DUE TO HIGH DEDUCTABLE AND OUT OF POCKET CALLED CECELIA WITH [facility] AT [phone]; HE RAN BENEFITS AND STATES THEY CANNOT TAKE PT EITHER DUE TO ABOVE SPOKE WITH BKEAH AT [facility] [phone]; SHE STATES THEY DO NOT TAKE BLUE CROSS BS EXCHANGE
--- NOTE | 2019-12-08 15:18 | NUR ---
CALLED [facility], THEY ARE ABLE TO ACCEPT HER, WAS IN PROCESS OF GETTING INFORMATION TO THEM AND PT HAD NURSE COME AND DECLINE, SHE HAS AN $8000.00 DEDUCTABLE THAT WOULD HAVE TO BE MET PRIOR TO INSURANCE PAYING. I WENT AND SPOKE WITH HER AND SHE DOES NOT WANT IT, I GAVE THE LIST OF INSURANCES IN NETWORK WITH HER COMPANY IN CASE SHE CHANGES HER MIND.
== END 2019-12-08 16:15 | disposition home or self-care (01) | DRG 488 ==
LOC: FSED 13:39 → ERHOLD 17:18 → MED/SURG 20:11
PROVIDERS: ADMIT Internal Medicine; ATTEND Internal Medicine
PROC: 0SBD0ZZ Excision of Left Knee Joint, Open Approach (ICD-10-PCS; 2019-12-07)
PROC: 0QUH0KZ Supplement Left Tibia with Nonautologous Tissue Substitute, Open Approach (ICD-10-PCS; 2019-12-07)
PROC: 0QSH04Z Reposition Left Tibia with Internal Fixation Device, Open Approach (ICD-10-PCS; principal; 2019-12-07 12:30)
DX: S82.142A Displaced bicondylar fracture of left tibia, initial encounter for closed fracture (principal); E87.1 Hypo-osmolality and hyponatremia; F17.210 Nicotine dependence, cigarettes, uncomplicated; S82.402A Unspecified fracture of shaft of left fibula, initial encounter for closed fracture; Z85.3 Personal history of malignant neoplasm of breast; I10 Essential (primary) hypertension; E87.8 Other disorders of electrolyte and fluid balance, not elsewhere classified; E86.0 Dehydration; W01.0XXA Fall on same level from slipping, tripping and stumbling without subsequent striking against object, initial encounter; R06.02 Shortness of breath; F17.290 Nicotine dependence, other tobacco product, uncomplicated; Z11.59 Encounter for screening for other viral diseases
CPT/HCPCS: 36415; 71045; 76000; 80053; 81001; 81003; 85014; 85018; 85025; 85610; 85730; 86850; 86900; 87086; 87635; 93005; 93306; 93971; 97139; 99284; C1713; J0690; J1100; J1170; J1644; J1885; J2250; J2270; J2405; J2550; J3010; J7030; J7050

== ENCOUNTER 2021-04-01 12:15 | Inpatient (IN) | payer BC, OTHER ==
[~2021-04-01] VITALS: Ht 160 cm; Wt 51.9 kg
[~2021-04-01 12:15] MED LIST: CLONIDINE HCL0.1 MG PO; COLACE100 MG PO; KEFLEX500 MG PO; TOPROL XL25 MG PO; TYLENOL WITH C1 EACH PO; ULTRAM 50MG50 MG PO
[2021-04-01] MEDS ORDERED: IOPAMIDOL 370 MG/ML 200 ML INFUS..BTL INJ ONE (13:04)
[2021-04-01] MEDS ORDERED: SODIUM CHLORIDE 0.9% 50ML 50 ML ONE (13:05)
[2021-04-01] MEDS: ENOXAPARIN SODIUM INJ 100 MG/ML SYR SC SCH (13:24)
[2021-04-01] MEDS ORDERED: ENOXAPARIN SODIUM INJ 100 MG/ML SYR SC ONE (13:30)
[2021-04-01] MEDS ORDERED: CEFEPIME 1 GM in SODIUM CHLORIDE 0.9% 50ML 50 ML IV SCH ×2 (16:00→20:15)
[2021-04-01] MEDS ORDERED: Morphine 2mg Syringe 2 MG/ML SYR IV PRN (17:00)
[2021-04-01] MEDS ORDERED: BISACODYL 10 MG SUPP PR ONE (17:30)
[2021-04-01] MEDS ORDERED: ZOLPIDEM TARTRATE 5 MG TAB PO PRN (17:30)
[2021-04-01] MEDS: METHYLPREDNISOLONE SOD SUCC 40 MG/ML VIAL 1ML IV SCH (20:45)
[2021-04-01] MEDS: HYDROCODONE/APAP 7.5MG-325MG 1 EA TAB PO PRN (20:45)
[2021-04-01 23:00] VITALS: BP 112/70
[2021-04-01 23:17] VITALS: BP 112/70
[2021-04-02] VITALS (10 sets, daily range): BP systolic 116–148; BP diastolic 79–92
[2021-04-02] MEDS: ENOXAPARIN SODIUM INJ 100 MG/ML SYR SC SCH (01:40)
[2021-04-02] MEDS: CEFEPIME 1 GM in SODIUM CHLORIDE 0.9% 50ML 50 ML IV SCH ×2 (04:17→16:25)
[2021-04-02 05:55] LABS: EOSINOPHILS % 0.1 % (0.0-6.0); HEMATOCRIT 32.8 % (34.2-44.1); HEMOGLOBIN 10.6 g/dL (12.0-16.0); LYMPHOCYTES # (AUTO) 0.4 (1.0-3.2); LYMPHOCYTES % 4.7 % (18.0-39.1); MEAN CORPUSCULAR HGB CONC 32.3 g/dL (31-35); MEAN CORPUSCULAR VOLUME 105.1 fL (81-99); MONOCYTES # (AUTO) 0.1 (0.2-0.8); MONOCYTES % 0.6 % (4.4-11.3); NEUTROPHILS # (AUTO) 7.6 (2.1-6.9); NEUTROPHILS % 94.2 % (38.7-80.0); PLATELET COUNT 288 x10e3/uL (140-360); RED BLOOD COUNT 3.12 x10e6/uL (3.6-5.1); RED CELL DISTRIBUTION WIDTH 13.1 % (11.7-14.4)
[2021-04-02 06:53] LABS: CREATINE KINASE MB 0.7 ng/mL (0-5.0)
[2021-04-02 06:54] LABS: ALBUMIN 2.3 g/dL (3.5-5.0); ALBUMIN/GLOBULIN RATIO 0.5 (0.8-2.0); ANION GAP 16.6 mmol/L (8-16); CALCIUM 8.2 mg/dL (8.4-10.2); CREATININE, SERUM 0.49 mg/dL (0.57-1.11); POTASSIUM 4.6 mmol/L (3.5-5.1)
[2021-04-02 08:25] LABS: INR 1.06; PROTHROMBIN TIME 14.2 seconds (11.9-14.5)
[2021-04-02] MEDS: METHYLPREDNISOLONE SOD SUCC 40 MG/ML VIAL 1ML IV SCH ×2 (08:37→21:07)
[2021-04-02 08:49] LABS: LYMPHOCYTES % (MANUAL) 4 % (19-48); MONOCYTES % (MANUAL) 1 % (3.4-9.0); NEUTROPHILS % (MANUAL) 95 % (40-74); PLATELET ESTIMATE ADEQUATE
[2021-04-02 08:50] LABS: PLATELET MORPHOLOGY COMMENT FEW LARGE; RBC MORPHOLOGY COMMENT ABNORMAL
[2021-04-02] MEDS: POLYETHYLENE GLYCOL 3350 17 GM PACK PO SCH ×2 (11:31→16:25)
[2021-04-02] MEDS: DOCUSATE SODIUM 100 MG CAP PO SCH ×2 (11:31→16:25)
[2021-04-02 11:32] LABS: FERRITIN 822.9 ng/mL (4.63-204.00)
[2021-04-02] MEDS ORDERED: HEPARIN 25,000 UNIT DRIP IV ONE (11:39)
[2021-04-02] MEDS: TRAMADOL HCL 50 MG TAB PO PRN (11:58)
[2021-04-02] MEDS: HEPARIN 25,000 UNIT 1,100 UNIT in DEXTROSE 5% 250ML 250 ML IV SCH (12:10)
[2021-04-02] MEDS: HYDROCODONE/APAP 7.5MG-325MG 1 EA TAB PO PRN (12:29)
[2021-04-02] MEDS ORDERED: SODIUM CHLORIDE 0.9% 250ML 250 ML ONE (17:13)
[2021-04-02] MEDS ORDERED: WARFARIN SOD 5 MG TAB PO SCH (17:15)
[2021-04-02 17:49] LABS: ABG HCO3 32 mmol/L (22-26); ABG PCO2 44 mmHg (35-45); ABG PH 7.47 (7.35-7.45); ABG PO2 114 mmHg (80-105); ABG TCO2 34
[2021-04-02] MEDS: Morphine 4mg Syringe 4 MG/ML INJ IV PRN (18:05)
[2021-04-02] MEDS: TRAZODONE HCL 50 MG TAB PO SCH (21:07)
[2021-04-02] MEDS: FLUOXETINE HCL 20 MG CAP PO SCH (21:07)
[2021-04-03] VITALS (25 sets, daily range): BP systolic 123–155; BP diastolic 72–97
[2021-04-03] MEDS: CEFEPIME 1 GM in SODIUM CHLORIDE 0.9% 50ML 50 ML IV SCH ×2 (02:58→15:26)
[2021-04-03] MEDS: GUAIFENESIN/CODEINE 5 ML LIQD PO PRN (02:59)
[2021-04-03] MEDS ORDERED: GUAIFENESIN/CODEINE 5 ML LIQD ONE (03:05)
[2021-04-03 06:38] LABS: ALBUMIN 2.5 g/dL (3.5-5.0); ALBUMIN/GLOBULIN RATIO 0.6 (0.8-2.0); CALCIUM 8.7 mg/dL (8.4-10.2); CREATININE, SERUM 0.48 mg/dL (0.57-1.11)
[2021-04-03] MEDS: ONDANSETRON HCL INJ 2MG/ML 2ML 2 MG/ML VIAL IV PRN (07:19)
[2021-04-03 07:28] LABS: HEMATOCRIT 33.8 % (34.2-44.1); HEMOGLOBIN 11.2 g/dL (12.0-16.0); LYMPHOCYTES # (AUTO) 0.6 (1.0-3.2); LYMPHOCYTES % 6.1 % (18.0-39.1); MEAN CORPUSCULAR HEMOGLOBIN 34.1 pg (28-32); MEAN CORPUSCULAR HGB CONC 33.1 g/dL (31-35); MONOCYTES # (AUTO) 0.1 (0.2-0.8); MONOCYTES % 0.6 % (4.4-11.3); NEUTROPHILS # (AUTO) 8.4 (2.1-6.9); NEUTROPHILS % 92.9 % (38.7-80.0); PLATELET COUNT 303 x10e3/uL (140-360); RED BLOOD COUNT 3.28 x10e6/uL (3.6-5.1); RED CELL DISTRIBUTION WIDTH 12.7 % (11.7-14.4)
[2021-04-03] MEDS: HYDROCODONE/APAP 7.5MG-325MG 1 EA TAB PO PRN (07:29)
[2021-04-03 07:43] LABS: INR 0.93; PROTHROMBIN TIME 12.9 seconds (11.9-14.5)
[2021-04-03 08:20] LABS: LYMPHOCYTES % (MANUAL) 7 % (19-48); NEUTROPHILS % (MANUAL) 93 % (40-74); PLATELET ESTIMATE ADEQUATE; PLATELET MORPHOLOGY COMMENT NORMAL; RBC MORPHOLOGY COMMENT NORMAL
[2021-04-03] MEDS: DOCUSATE SODIUM 100 MG CAP PO SCH ×2 (09:15→16:25)
[2021-04-03] MEDS: METHYLPREDNISOLONE SOD SUCC 40 MG/ML VIAL 1ML IV SCH ×2 (09:15→21:05)
[2021-04-03] MEDS: POLYETHYLENE GLYCOL 3350 17 GM PACK PO SCH ×2 (09:15→16:25)
[2021-04-03] MEDS: METOPROLOL SUCCINATE 25 MG TAB XL PO SCH (10:35)
[2021-04-03] MEDS: HEPARIN 25,000 UNIT 1,100 UNIT in DEXTROSE 5% 250ML 250 ML IV SCH (10:39)
[2021-04-03] MEDS ORDERED: Morphine 4mg Syringe 4 MG/ML INJ IV PRN (11:30)
[2021-04-03] MEDS: TRAMADOL HCL 50 MG TAB PO PRN ×2 (11:30→21:16)
[2021-04-03] MEDS: APIXABAN 5 MG TABLET PO SCH ×2 (11:45→16:25)
[2021-04-03] MEDS ORDERED: METHYLPREDNISOLONE SOD SUCC 125 MG/2ML VIAL IV ONE (14:15)
[2021-04-03] MEDS: Morphine 4mg Syringe 4 MG/ML INJ IV PRN (19:43)
[2021-04-03] MEDS: FLUOXETINE HCL 20 MG CAP PO SCH (21:05)
[2021-04-03] MEDS: TRAZODONE HCL 50 MG TAB PO SCH (21:05)
[2021-04-04] VITALS (22 sets, daily range): BP systolic 114–166; BP diastolic 78–101
[2021-04-04] MEDS: CEFEPIME 1 GM in SODIUM CHLORIDE 0.9% 50ML 50 ML IV SCH ×2 (04:13→15:52)
[2021-04-04] MEDS: ONDANSETRON HCL INJ 2MG/ML 2ML 2 MG/ML VIAL IV PRN ×4 (04:13→22:18)
[2021-04-04 05:51] LABS: ALBUMIN 2.6 g/dL (3.5-5.0); ALBUMIN/GLOBULIN RATIO 0.6 (0.8-2.0); ANION GAP 14.7 mmol/L (8-16); CALCIUM 8.7 mg/dL (8.4-10.2); CREATININE, SERUM 0.48 mg/dL (0.57-1.11); POTASSIUM 3.7 mmol/L (3.5-5.1)
[2021-04-04 07:38] LABS: BASOPHILS % 0.3 % (0.0-1.0); EOSINOPHILS % 0.1 % (0.0-6.0); HEMATOCRIT 33.9 % (34.2-44.1); HEMOGLOBIN 11.2 g/dL (12.0-16.0); LYMPHOCYTES # (AUTO) 0.9 (1.0-3.2); LYMPHOCYTES % 11.4 % (18.0-39.1); MEAN CORPUSCULAR HEMOGLOBIN 34.4 pg (28-32); MONOCYTES # (AUTO) 0.1 (0.2-0.8); MONOCYTES % 0.9 % (4.4-11.3); NEUTROPHILS # (AUTO) 6.9 (2.1-6.9); NEUTROPHILS % 85.9 % (38.7-80.0); PLATELET COUNT 263 x10e3/uL (140-360); RED BLOOD COUNT 3.26 x10e6/uL (3.6-5.1); RED CELL DISTRIBUTION WIDTH 12.6 % (11.7-14.4)
[2021-04-04] MEDS: DOCUSATE SODIUM 100 MG CAP PO SCH ×2 (08:12→17:11)
[2021-04-04] MEDS: METHYLPREDNISOLONE SOD SUCC 40 MG/ML VIAL 1ML IV SCH (08:12)
[2021-04-04] MEDS: APIXABAN 5 MG TABLET PO SCH ×2 (08:13→17:11)
[2021-04-04] MEDS: POLYETHYLENE GLYCOL 3350 17 GM PACK PO SCH ×2 (08:13→17:00)
[2021-04-04] MEDS: METOPROLOL SUCCINATE 25 MG TAB XL PO SCH (08:13)
[2021-04-04] MEDS: GUAIFENESIN/CODEINE 5 ML LIQD PO PRN (08:13)
[2021-04-04] MEDS: HYDROCODONE/APAP 7.5MG-325MG 1 EA TAB PO PRN ×2 (08:31→17:16)
[2021-04-04 10:44] LABS: INR 1.13
[2021-04-04] MEDS: Morphine 4mg Syringe 4 MG/ML INJ IV PRN ×2 (15:57→22:18)
[2021-04-04] MEDS ORDERED: METOPROLOL SUCCINATE 25 MG TAB XL PO NR (20:00)
[2021-04-04] MEDS: TRAMADOL HCL 50 MG TAB PO PRN (20:51)
[2021-04-04] MEDS: FLUOXETINE HCL 20 MG CAP PO SCH (20:51)
[2021-04-04] MEDS: TRAZODONE HCL 50 MG TAB PO SCH (20:51)
[2021-04-04] MEDS ORDERED: FAMOTIDINE 20 MG TAB PO ONE (22:30)
[2021-04-04] MEDS ORDERED: FAMOTIDINE 20 MG TAB ONE (22:32)
[2021-04-04] MEDS ORDERED: LIDOCAINE 4% PATCH TP ONE (22:32)
[2021-04-04] MEDS: LIDOCAINE 4% PATCH TP SCH (22:39)
[2021-04-05] VITALS (17 sets, daily range): BP systolic 123–184; BP diastolic 68–122
[2021-04-05] MEDS: CEFEPIME 1 GM in SODIUM CHLORIDE 0.9% 50ML 50 ML IV SCH ×2 (04:40→16:46)
[2021-04-05] MEDS: ONDANSETRON HCL INJ 2MG/ML 2ML 2 MG/ML VIAL IV PRN ×2 (05:27→14:49)
[2021-04-05] MEDS: Morphine 4mg Syringe 4 MG/ML INJ IV PRN ×2 (05:27→14:49)
[2021-04-05 08:47] LABS: ANION GAP 14.2 mmol/L (8-16); CALCIUM 8.7 mg/dL (8.4-10.2); CREATININE, SERUM 0.51 mg/dL (0.57-1.11); POTASSIUM 3.2 mmol/L (3.5-5.1)
[2021-04-05] MEDS: DOCUSATE SODIUM 100 MG CAP PO SCH ×2 (08:57→16:46)
[2021-04-05] MEDS: LIDOCAINE 4% PATCH TP SCH (08:57)
[2021-04-05] MEDS: POLYETHYLENE GLYCOL 3350 17 GM PACK PO SCH ×2 (08:57→16:46)
[2021-04-05] MEDS: APIXABAN 5 MG TABLET PO SCH ×2 (08:57→16:46)
[2021-04-05] MEDS: METHYLPREDNISOLONE SOD SUCC 40 MG/ML VIAL 1ML IV SCH (08:57)
[2021-04-05] MEDS ORDERED: METOPROLOL SUCCINATE 25 MG TAB XL PO SCH (09:00)
[2021-04-05] MEDS: HYDROCODONE/APAP 7.5MG-325MG 1 EA TAB PO PRN ×2 (09:01→13:52)
[2021-04-05 09:09] LABS: HEMATOCRIT 34.2 % (34.2-44.1); HEMOGLOBIN 11.6 g/dL (12.0-16.0); MEAN CORPUSCULAR HEMOGLOBIN 34.4 pg (28-32); MEAN CORPUSCULAR HGB CONC 33.9 g/dL (31-35); MEAN CORPUSCULAR VOLUME 101.5 fL (81-99); PLATELET COUNT 139 x10e3/uL (140-360); RED BLOOD COUNT 3.37 x10e6/uL (3.6-5.1); RED CELL DISTRIBUTION WIDTH 12.5 % (11.7-14.4)
[2021-04-05] MEDS ORDERED: PROZAC20 MG PO (09:39)
[2021-04-05 10:23] LABS: EOSINOPHILS % (MANUAL) 1 % (0-7); LYMPHOCYTES % (MANUAL) 11 % (19-48); NEUTROPHILS % (MANUAL) 88 % (40-74); PLATELET ESTIMATE SLIGHTLY DECREASED; PLATELET MORPHOLOGY COMMENT FEW LARGE; RBC MORPHOLOGY COMMENT NORMAL
[2021-04-05] MEDS ORDERED: POTASSIUM CHLORIDE 20MEQ/100ML 200 ML IV ONE (10:30)
[2021-04-05 12:18] LABS: INR 1.21; PROTHROMBIN TIME 15.8 seconds (11.9-14.5)
[2021-04-05] MEDS ORDERED: AMLODIPINE BESYLATE 5 MG TAB PO SCH (12:45)
[2021-04-05] MEDS: AMLODIPINE BESYLATE 5 MG TAB PO SCH (13:23)
[2021-04-05] MEDS: HYDRALAZINE HCL 20 MG/ML VIAL IV PRN (14:18)
[2021-04-05] MEDS ORDERED: LORAZEPAM INJ 2 MG/ML VIAL IV PRN (15:45)
[2021-04-05] MEDS ORDERED: MAGNESIUM HYDROXIDE 30 ML UDC PO ONE (16:45)
[2021-04-05 16:59] LABS: ABG PCO2 38 mmHg (35-45); ABG PH 7.51 (7.35-7.45)
[2021-04-05 17:00] LABS: ABG HCO3 31 mmol/L (22-26); ABG PO2 124 mmHg (80-105); ABG TCO2 32
[2021-04-05] MEDS: TRAZODONE HCL 50 MG TAB PO SCH (21:44)
[2021-04-05] MEDS: MELATONIN 3 MG TAB PO SCH (21:44)
[2021-04-05] MEDS: FLUOXETINE HCL 20 MG CAP PO SCH (21:45)
[2021-04-05] MEDS: METOPROLOL SUCCINATE 50 MG TAB XL PO SCH (21:45)
[2021-04-06] VITALS (18 sets, daily range): BP systolic 118–159; BP diastolic 69–94
[2021-04-06] MEDS: CEFEPIME 1 GM in SODIUM CHLORIDE 0.9% 50ML 50 ML IV SCH ×2 (04:12→18:05)
[2021-04-06 04:55] LABS: HEMATOCRIT 30.6 % (34.2-44.1); HEMOGLOBIN 10.5 g/dL (12.0-16.0); MEAN CORPUSCULAR HEMOGLOBIN 33.8 pg (28-32); MEAN CORPUSCULAR HGB CONC 34.3 g/dL (31-35); MEAN CORPUSCULAR VOLUME 98.4 fL (81-99); PLATELET COUNT 70 x10e3/uL (140-360); RED BLOOD COUNT 3.11 x10e6/uL (3.6-5.1); RED CELL DISTRIBUTION WIDTH 12.1 % (11.7-14.4)
[2021-04-06 05:22] LABS: ALBUMIN 2.6 g/dL (3.5-5.0); ALBUMIN/GLOBULIN RATIO 0.7 (0.8-2.0); ANION GAP 16.3 mmol/L (8-16); CALCIUM 8.7 mg/dL (8.4-10.2); CREATININE, SERUM 0.48 mg/dL (0.57-1.11); POTASSIUM 3.3 mmol/L (3.5-5.1)
[2021-04-06 06:17] LABS: LYMPHOCYTES % (MANUAL) 12 % (19-48); NEUTROPHILS % (MANUAL) 88 % (40-74); NUCLEATED RED BLOOD CELLS 1; PLATELET ESTIMATE MODERATELY DECREASED; PLATELET MORPHOLOGY COMMENT NORMAL; RBC MORPHOLOGY COMMENT NORMAL
[2021-04-06] MEDS ORDERED: POTASSIUM CHLORIDE 20MEQ/100ML 100 ML IV ONE (06:45)
[2021-04-06] MEDS: METHYLPREDNISOLONE SOD SUCC 40 MG/ML VIAL 1ML IV SCH (08:05)
[2021-04-06] MEDS: DOCUSATE SODIUM 100 MG CAP PO SCH ×2 (08:05→17:00)
[2021-04-06] MEDS: APIXABAN 5 MG TABLET PO SCH ×2 (08:05→18:05)
[2021-04-06] MEDS: POLYETHYLENE GLYCOL 3350 17 GM PACK PO SCH ×2 (08:05→17:00)
[2021-04-06] MEDS: LIDOCAINE 4% PATCH TP SCH (08:06)
[2021-04-06] MEDS: AMLODIPINE BESYLATE 5 MG TAB PO SCH (08:07)
[2021-04-06] MEDS: METOPROLOL SUCCINATE 50 MG TAB XL PO SCH ×2 (08:07→20:48)
[2021-04-06 10:01] LABS: INR 1.16; PROTHROMBIN TIME 15.3 seconds (11.9-14.5)
[2021-04-06] MEDS: ONDANSETRON HCL INJ 2MG/ML 2ML 2 MG/ML VIAL IV PRN (10:49)
[2021-04-06] MEDS: TRAMADOL HCL 50 MG TAB PO PRN (11:13)
[2021-04-06] MEDS: LOSARTAN POTASSIUM 25 MG TAB PO SCH (13:57)
[2021-04-06] MEDS ORDERED: SODIUM CHLORIDE 0.9% 250ML 250 ML ONE (16:37)
[2021-04-06] MEDS: PROMETHAZINE 12.5MG/ NACL 0.9% 12.5 MG/50 ML BAG IV PRN (19:00)
[2021-04-06] MEDS ORDERED: MAGNESIUM SULFATE 2GM/50ML 50 ML IV ONE ×2 (19:45→20:22)
[2021-04-06] MEDS: TRAZODONE HCL 50 MG TAB PO SCH (20:48)
[2021-04-06] MEDS: MELATONIN 3 MG TAB PO SCH (20:48)
[2021-04-06] MEDS: FLUOXETINE HCL 20 MG CAP PO SCH (20:48)
[2021-04-07] VITALS (25 sets, daily range): BP systolic 102–146; BP diastolic 64–92
[2021-04-07] MEDS: CLONAZEPAM 0.5 MG TAB PO PRN ×2 (00:24→09:40)
[2021-04-07] MEDS: CEFEPIME 1 GM in SODIUM CHLORIDE 0.9% 50ML 50 ML IV SCH ×2 (04:11→16:03)
[2021-04-07 05:04] LABS: BASOPHILS % 0.2 % (0.0-1.0); EOSINOPHILS # (AUTO) 0.1 (0.0-0.4); EOSINOPHILS % 3.1 % (0.0-6.0); HEMATOCRIT 30.8 % (34.2-44.1); HEMOGLOBIN 10.7 g/dL (12.0-16.0); LYMPHOCYTES # (AUTO) 0.9 (1.0-3.2); LYMPHOCYTES % 20.7 % (18.0-39.1); MEAN CORPUSCULAR HGB CONC 34.7 g/dL (31-35); MEAN CORPUSCULAR VOLUME 97.8 fL (81-99); MONOCYTES # (AUTO) 0.3 (0.2-0.8); MONOCYTES % 7.1 % (4.4-11.3); NEUTROPHILS % 67.8 % (38.7-80.0); RED BLOOD COUNT 3.15 x10e6/uL (3.6-5.1)
[2021-04-07 05:06] LABS: PLATELET COUNT 32 x10e3/uL (140-360)
[2021-04-07 05:42] LABS: ALBUMIN 2.8 g/dL (3.5-5.0); ALBUMIN/GLOBULIN RATIO 0.7 (0.8-2.0); ANION GAP 16.1 mmol/L (8-16); CREATININE, SERUM 0.54 mg/dL (0.57-1.11); MAGNESIUM 1.8 MG/DL (1.3-2.1); POTASSIUM 3.1 mmol/L (3.5-5.1)
[2021-04-07 05:57] LABS: PHOSPHORUS 2.6 MG/DL (2.3-4.7)
[2021-04-07 06:32] LABS: FREE THYROXINE INDEX 2.1547 (1.4-3.8); THYROID STIMULATING HORMONE 1.872 uIU/mL (0.350-4.940)
[2021-04-07] MEDS: DOCUSATE SODIUM 100 MG CAP PO SCH ×2 (08:07→16:03)
[2021-04-07] MEDS: AMLODIPINE BESYLATE 5 MG TAB PO SCH (08:08)
[2021-04-07] MEDS: APIXABAN 5 MG TABLET PO SCH ×2 (08:08→16:03)
[2021-04-07] MEDS: POLYETHYLENE GLYCOL 3350 17 GM PACK PO SCH ×2 (08:08→16:03)
[2021-04-07] MEDS: LOSARTAN POTASSIUM 25 MG TAB PO SCH (08:08)
[2021-04-07] MEDS: METOPROLOL SUCCINATE 50 MG TAB XL PO SCH ×2 (08:08→21:36)
[2021-04-07] MEDS: PROMETHAZINE 12.5MG/ NACL 0.9% 12.5 MG/50 ML BAG IV PRN (08:08)
[2021-04-07] MEDS: LIDOCAINE 4% PATCH TP SCH (08:12)
[2021-04-07] MEDS ORDERED: POTASSIUM CHLORIDE 20MEQ/100ML 100 ML IV STA (09:28)
[2021-04-07] MEDS: TRAMADOL HCL 50 MG TAB PO PRN ×2 (09:40→17:40)
[2021-04-07] MEDS ORDERED: POTASSIUM CHLORIDE 20MEQ/100ML 100 ML IV ONE (09:45)
[2021-04-07 10:26] LABS: INR 1.2; PROTHROMBIN TIME 15.7 seconds (11.9-14.5)
[2021-04-07] MEDS ORDERED: MULTIVITAMINS- 12 INJECTION 10 ML, FOLIC ACID MDV 1 MG, THIAMINE HCL INJ 100 MG in SODI... IV ONE (11:30)
[2021-04-07 13:13] LABS: CHOL/HDL RATIO 4.3 (3.0-3.6)
[2021-04-07] MEDS ORDERED: LACTULOSE SYRUP 20 GM/30 ML UDC PO ONE (13:45)
[2021-04-07] MEDS ORDERED: CHLORDIAZEPOXIDE HCL 10 MG CAP PO SCH (17:00)
[2021-04-07] MEDS: ONDANSETRON HCL INJ 2MG/ML 2ML 2 MG/ML VIAL IV PRN ×2 (17:24→21:50)
[2021-04-07] MEDS: TRAZODONE HCL 50 MG TAB PO SCH (21:35)
[2021-04-07] MEDS: FLUOXETINE HCL 20 MG CAP PO SCH (21:35)
[2021-04-07] MEDS: MELATONIN 3 MG TAB PO SCH (21:35)
[2021-04-08] VITALS (25 sets, daily range): BP systolic 116–146; BP diastolic 71–89
[2021-04-08] MEDS: CLONAZEPAM 0.5 MG TAB PO PRN ×2 (02:36→18:20)
[2021-04-08] MEDS ORDERED: DONNATAL/LIDOCAINE/MAALOX 30 ML SUSP PO ONE (03:15)
[2021-04-08] MEDS: Pantoprazole IV 40 MG in SODIUM CHLORIDE 0.9% 50ML 50 ML IV SCH ×5 (03:17→23:27)
[2021-04-08] MEDS: CEFEPIME 1 GM in SODIUM CHLORIDE 0.9% 50ML 50 ML IV SCH ×2 (03:21→16:50)
[2021-04-08] MEDS: METOCLOPRAMIDE HCL 10 MG/2ML VIAL IV SCH ×4 (03:21→23:27)
[2021-04-08] MEDS ORDERED: LIDOCAINE VISC 2% SOLN 15 ML UDC ONE (03:26)
[2021-04-08] MEDS ORDERED: MAGNESIUM/ALUMINUM/SIMETHICONE 30 ML UDC ONE (03:26)
[2021-04-08] MEDS ORDERED: BELLADONNA ALK/PHENOBARBITAL 5 ML UDC ONE (03:28)
[2021-04-08 05:04] LABS: BASOPHILS % 0.3 % (0.0-1.0); EOSINOPHILS # (AUTO) 0.1 (0.0-0.4); HEMATOCRIT 26.8 % (34.2-44.1); HEMOGLOBIN 9.4 g/dL (12.0-16.0); LYMPHOCYTES # (AUTO) 0.9 (1.0-3.2); LYMPHOCYTES % 29.2 % (18.0-39.1); MEAN CORPUSCULAR HEMOGLOBIN 33.7 pg (28-32); MEAN CORPUSCULAR HGB CONC 35.1 g/dL (31-35); MEAN CORPUSCULAR VOLUME 96.1 fL (81-99); MONOCYTES # (AUTO) 0.4 (0.2-0.8); MONOCYTES % 14.3 % (4.4-11.3); NEUTROPHILS # (AUTO) 1.6 (2.1-6.9); NEUTROPHILS % 53.9 % (38.7-80.0); RED BLOOD COUNT 2.79 x10e6/uL (3.6-5.1); RED CELL DISTRIBUTION WIDTH 11.8 % (11.7-14.4)
[2021-04-08 05:18] LABS: PLATELET COUNT 20 x10e3/uL (140-360)
[2021-04-08 05:34] LABS: ALBUMIN 2.6 g/dL (3.5-5.0); ALBUMIN/GLOBULIN RATIO 0.8 (0.8-2.0); ANION GAP 13.7 mmol/L (8-16); CREATININE, SERUM 0.48 mg/dL (0.57-1.11); MAGNESIUM 1.3 MG/DL (1.3-2.1)
[2021-04-08 05:36] LABS: POTASSIUM 2.7 mmol/L (3.5-5.1)
[2021-04-08] MEDS: POTASSIUM CHLORIDE 20MEQ/100ML 100 ML IV SCH ×2 (08:46→10:43)
[2021-04-08] MEDS: LIDOCAINE 4% PATCH TP SCH (08:47)
[2021-04-08] MEDS: LOSARTAN POTASSIUM 25 MG TAB PO SCH (08:47)
[2021-04-08] MEDS: POLYETHYLENE GLYCOL 3350 17 GM PACK PO SCH ×2 (08:47→16:51)
[2021-04-08] MEDS: DOCUSATE SODIUM 100 MG CAP PO SCH ×2 (08:47→16:51)
[2021-04-08] MEDS ORDERED: SODIUM CHLORIDE 0.9% 100 ML ONE ×2 (10:25→15:44)
[2021-04-08 10:37] LABS: INR 1.25; PROTHROMBIN TIME 16.2 seconds (11.9-14.5)
[2021-04-08] MEDS: ONDANSETRON HCL INJ 2MG/ML 2ML 2 MG/ML VIAL IV PRN ×2 (11:12→20:59)
[2021-04-08] MEDS: METOPROLOL SUCCINATE 50 MG TAB XL PO SCH ×2 (12:40→20:58)
[2021-04-08] MEDS ORDERED: POTASSIUM CHLORIDE 20MEQ/100ML 200 ML IV SCH (13:00)
[2021-04-08] MEDS: TRAMADOL HCL 50 MG TAB PO PRN (13:59)
[2021-04-08] MEDS ORDERED: POTASSIUM CHLORIDE 20MEQ/100ML 200 ML IV ONE (20:00)
[2021-04-08] MEDS ORDERED: SODIUM CHLORIDE 0.9% 50ML 50 ML ONE (20:11)
[2021-04-08] MEDS: MELATONIN 3 MG TAB PO SCH (20:58)
[2021-04-08] MEDS: FLUOXETINE HCL 20 MG CAP PO SCH (20:58)
[2021-04-08] MEDS: TRAZODONE HCL 50 MG TAB PO SCH (20:58)
[2021-04-09] VITALS (15 sets, daily range): BP systolic 116–157; BP diastolic 74–92
[2021-04-09] MEDS: CEFEPIME 1 GM in SODIUM CHLORIDE 0.9% 50ML 50 ML IV SCH ×2 (04:11→15:10)
[2021-04-09] MEDS: Pantoprazole IV 40 MG in SODIUM CHLORIDE 0.9% 50ML 50 ML IV SCH ×4 (04:11→20:04)
[2021-04-09] MEDS: METOCLOPRAMIDE HCL 10 MG/2ML VIAL IV SCH ×3 (05:10→17:03)
[2021-04-09 05:50] LABS: EOSINOPHILS # (AUTO) 0.1 (0.0-0.4); EOSINOPHILS % 3.2 % (0.0-6.0); HEMATOCRIT 27.9 % (34.2-44.1); HEMOGLOBIN 9.7 g/dL (12.0-16.0); LYMPHOCYTES # (AUTO) 0.6 (1.0-3.2); LYMPHOCYTES % 33.7 % (18.0-39.1); MEAN CORPUSCULAR HEMOGLOBIN 33.6 pg (28-32); MEAN CORPUSCULAR HGB CONC 34.8 g/dL (31-35); MEAN CORPUSCULAR VOLUME 96.5 fL (81-99); MONOCYTES # (AUTO) 0.4 (0.2-0.8); MONOCYTES % 21.6 % (4.4-11.3); NEUTROPHILS # (AUTO) 0.8 (2.1-6.9); NEUTROPHILS % 41.5 % (38.7-80.0); RED BLOOD COUNT 2.89 x10e6/uL (3.6-5.1)
[2021-04-09 05:54] LABS: PLATELET COUNT 35 x10e3/uL (140-360)
[2021-04-09 06:05] LABS: INR 1.18; PROTHROMBIN TIME 15.5 seconds (11.9-14.5)
[2021-04-09 06:12] LABS: ANION GAP 14.5 mmol/L (8-16); CALCIUM 8.3 mg/dL (8.4-10.2); CREATININE, SERUM 0.51 mg/dL (0.57-1.11); POTASSIUM 3.5 mmol/L (3.5-5.1)
[2021-04-09] MEDS: DOCUSATE SODIUM 100 MG CAP PO SCH ×2 (08:48→16:21)
[2021-04-09] MEDS: LIDOCAINE 4% PATCH TP SCH (08:48)
[2021-04-09] MEDS: POLYETHYLENE GLYCOL 3350 17 GM PACK PO SCH ×2 (08:48→16:21)
[2021-04-09] MEDS: LOSARTAN POTASSIUM 25 MG TAB PO SCH (08:48)
[2021-04-09] MEDS: FILGRASTIM 300 MCG/ML VIAL SC SCH (09:44)
[2021-04-09] MEDS: METOPROLOL SUCCINATE 50 MG TAB XL PO SCH ×2 (10:08→20:55)
[2021-04-09] MEDS: CLONAZEPAM 0.5 MG TAB PO PRN (14:20)
[2021-04-09] MEDS: MELATONIN 3 MG TAB PO SCH (20:04)
[2021-04-09] MEDS: TRAZODONE HCL 50 MG TAB PO SCH (20:04)
[2021-04-09] MEDS: FLUOXETINE HCL 20 MG CAP PO SCH (20:04)
[2021-04-10] VITALS (8 sets, daily range): BP systolic 107–128; BP diastolic 76–89
[2021-04-10] MEDS: METOCLOPRAMIDE HCL 10 MG/2ML VIAL IV SCH ×5 (00:02→23:25)
[2021-04-10] MEDS: Pantoprazole IV 40 MG in SODIUM CHLORIDE 0.9% 50ML 50 ML IV SCH ×5 (00:02→21:23)
[2021-04-10] MEDS: CEFEPIME 1 GM in SODIUM CHLORIDE 0.9% 50ML 50 ML IV SCH ×2 (04:00→16:25)
[2021-04-10] MEDS: ONDANSETRON HCL INJ 2MG/ML 2ML 2 MG/ML VIAL IV PRN (05:08)
[2021-04-10] MEDS ORDERED: SODIUM CHLORIDE 0.9% 250ML 250 ML ONE (05:20)
[2021-04-10 05:37] LABS: BASOPHILS % 0.3 % (0.0-1.0); EOSINOPHILS % 1.4 % (0.0-6.0); HEMATOCRIT 26.2 % (34.2-44.1); HEMOGLOBIN 9.2 g/dL (12.0-16.0); LYMPHOCYTES # (AUTO) 0.9 (1.0-3.2); LYMPHOCYTES % 30.8 % (18.0-39.1); MEAN CORPUSCULAR HEMOGLOBIN 33.7 pg (28-32); MEAN CORPUSCULAR HGB CONC 35.1 g/dL (31-35); MONOCYTES # (AUTO) 0.5 (0.2-0.8); MONOCYTES % 17.5 % (4.4-11.3); NEUTROPHILS # (AUTO) 1.3 (2.1-6.9); NEUTROPHILS % 44.2 % (38.7-80.0); RED BLOOD COUNT 2.73 x10e6/uL (3.6-5.1)
[2021-04-10 05:56] LABS: ALBUMIN 2.5 g/dL (3.5-5.0); ALBUMIN/GLOBULIN RATIO 0.7 (0.8-2.0); ANION GAP 16.2 mmol/L (8-16); CALCIUM 8.1 mg/dL (8.4-10.2); CREATININE, SERUM 0.48 mg/dL (0.57-1.11); POTASSIUM 3.2 mmol/L (3.5-5.1)
[2021-04-10 06:27] LABS: PLATELET COUNT 23 x10e3/uL (140-360)
[2021-04-10 08:21] LABS: BAND NEUTROPHILS % (MANUAL) 4 %; EOSINOPHILS % (MANUAL) 1 % (0-7); LYMPHOCYTES % (MANUAL) 21 % (19-48); MONOCYTES % (MANUAL) 18 % (3.4-9.0); NEUTROPHILS % (MANUAL) 56 % (40-74)
[2021-04-10 08:22] LABS: PLATELET ESTIMATE MARKEDLY DECREASED; PLATELET MORPHOLOGY COMMENT NORMAL; RBC MORPHOLOGY COMMENT NORMAL
[2021-04-10] MEDS: ACETAMINOPHEN 325 MG TAB PO PRN ×2 (08:58→18:03)
[2021-04-10] MEDS: LOSARTAN POTASSIUM 25 MG TAB PO SCH (08:59)
[2021-04-10] MEDS: FILGRASTIM 300 MCG/ML VIAL SC SCH (09:00)
[2021-04-10] MEDS: METOPROLOL SUCCINATE 50 MG TAB XL PO SCH ×2 (09:00→21:24)
[2021-04-10] MEDS: DOCUSATE SODIUM 100 MG CAP PO SCH ×2 (09:00→16:25)
[2021-04-10] MEDS: LIDOCAINE 4% PATCH TP SCH (09:00)
[2021-04-10] MEDS: POLYETHYLENE GLYCOL 3350 17 GM PACK PO SCH ×2 (09:00→16:25)
[2021-04-10] MEDS ORDERED: POTASSIUM CHLORIDE 20 MEQ TAB CR PO STA (09:35)
[2021-04-10] MEDS ORDERED: MAGNESIUM SULFATE 2GM/50ML 50 ML IV ONE (10:30)
[2021-04-10 11:34] LABS: INR 1.26; PROTHROMBIN TIME 16.3 seconds (11.9-14.5)
[2021-04-10] MEDS: CLONAZEPAM 0.5 MG TAB PO PRN (18:03)
[2021-04-10] MEDS: TRAZODONE HCL 50 MG TAB PO SCH (21:23)
[2021-04-10] MEDS: FLUOXETINE HCL 20 MG CAP PO SCH (21:23)
[2021-04-10] MEDS: MELATONIN 3 MG TAB PO SCH (21:23)
[2021-04-10] MEDS ORDERED: METHYLPREDNISOLONE SOD SUCC 40 MG/ML VIAL 1ML IV ONE (22:45)
[2021-04-10] MEDS: ALBUTEROL/IPRATROPIUM 3 ML NEB NEB SCH (23:23)
[2021-04-10] MEDS: DOXYCYCLINE HYCLATE TABLET 100 MG TAB PO SCH (23:25)
[2021-04-11] VITALS (13 sets, daily range): BP systolic 82–153; BP diastolic 58–98
[2021-04-11] MEDS: Pantoprazole IV 40 MG in SODIUM CHLORIDE 0.9% 50ML 50 ML IV SCH ×5 (01:14→22:23)
[2021-04-11] MEDS: ACETAMINOPHEN 325 MG TAB PO PRN ×3 (01:15→17:40)
[2021-04-11] MEDS: ALBUTEROL/IPRATROPIUM 3 ML NEB NEB SCH ×6 (04:46→22:31)
[2021-04-11] MEDS: CEFEPIME 1 GM in SODIUM CHLORIDE 0.9% 50ML 50 ML IV SCH ×2 (04:47→17:29)
[2021-04-11] MEDS: CLONAZEPAM 0.5 MG TAB PO PRN ×2 (05:09→15:08)
[2021-04-11 05:48] LABS: BASOPHILS # (AUTO) 0.1 (0.0-0.1); BASOPHILS % 1.1 % (0.0-1.0); HEMATOCRIT 27.6 % (34.2-44.1); LYMPHOCYTES # (AUTO) 0.9 (1.0-3.2); LYMPHOCYTES % 11.8 % (18.0-39.1); MEAN CORPUSCULAR HEMOGLOBIN 34.2 pg (28-32); MEAN CORPUSCULAR HGB CONC 36.2 g/dL (31-35); MEAN CORPUSCULAR VOLUME 94.5 fL (81-99); MONOCYTES # (AUTO) 0.9 (0.2-0.8); MONOCYTES % 11.8 % (4.4-11.3); NEUTROPHILS # (AUTO) 5.7 (2.1-6.9); NEUTROPHILS % 74.8 % (38.7-80.0); RED BLOOD COUNT 2.92 x10e6/uL (3.6-5.1); RED CELL DISTRIBUTION WIDTH 12.2 % (11.7-14.4)
[2021-04-11 05:57] LABS: PLATELET COUNT 14 x10e3/uL (140-360)
[2021-04-11 06:18] LABS: ALBUMIN 2.7 g/dL (3.5-5.0); ALBUMIN/GLOBULIN RATIO 0.7 (0.8-2.0); ANION GAP 17.9 mmol/L (8-16); CALCIUM 8.4 mg/dL (8.4-10.2); CREATININE, SERUM 0.55 mg/dL (0.57-1.11); MAGNESIUM 1.7 MG/DL (1.3-2.1); POTASSIUM 3.9 mmol/L (3.5-5.1)
[2021-04-11] MEDS: METOCLOPRAMIDE HCL 10 MG/2ML VIAL IV SCH ×3 (06:30→17:30)
[2021-04-11] MEDS: LOSARTAN POTASSIUM 25 MG TAB PO SCH (08:17)
[2021-04-11] MEDS: DOCUSATE SODIUM 100 MG CAP PO SCH ×2 (08:17→17:00)
[2021-04-11] MEDS: POLYETHYLENE GLYCOL 3350 17 GM PACK PO SCH ×2 (08:18→17:00)
[2021-04-11] MEDS: FILGRASTIM 300 MCG/ML VIAL SC SCH (08:19)
[2021-04-11] MEDS: DOXYCYCLINE HYCLATE TABLET 100 MG TAB PO SCH ×2 (08:19→17:30)
[2021-04-11] MEDS: METOPROLOL SUCCINATE 50 MG TAB XL PO SCH ×2 (08:19→21:00)
[2021-04-11] MEDS: LIDOCAINE 4% PATCH TP SCH (08:20)
[2021-04-11 09:28] LABS: BAND NEUTROPHILS % (MANUAL) 6 %; LYMPHOCYTES % (MANUAL) 10 % (19-48); MONOCYTES % (MANUAL) 10 % (3.4-9.0); NEUTROPHILS % (MANUAL) 72 % (40-74); NUCLEATED RED BLOOD CELLS 1; PROMYELOCYTES % (MANUAL) 1 % (0-0)
[2021-04-11 09:29] LABS: PLATELET ESTIMATE MARKEDLY DECREASED; PLATELET MORPHOLOGY COMMENT NORMAL; RBC MORPHOLOGY COMMENT NORMAL; TOXIC GRANULATION MODERATE
[2021-04-11 10:28] LABS: INR 1.42; PROTHROMBIN TIME 17.9 seconds (11.9-14.5)
[2021-04-11] MEDS ORDERED: HEPARIN 25,000 UNIT 1,100 UNIT in DEXTROSE 5% 250ML 250 ML IV SCH (11:15)
[2021-04-11] MEDS ORDERED: ENOXAPARIN SOD INJ 40 MG/0.4 ML SYR SC SCH (11:45)
[2021-04-11] MEDS ORDERED: SODIUM CHLORIDE 0.9% 250ML 250 ML ONE ×2 (13:06→15:52)
[2021-04-11] MEDS: ONDANSETRON HCL INJ 2MG/ML 2ML 2 MG/ML VIAL IV PRN (14:15)
[2021-04-11 15:53] LABS: ABG HCO3 23 mmol/L (22-26); ABG PCO2 29 mmHg (35-45); ABG PH 7.51 (7.35-7.45); ABG PO2 62 mmHg (80-105); ABG TCO2 24
[2021-04-11 16:51] LABS: BASOPHILS # (AUTO) 0.1 (0.0-0.1); BASOPHILS % 0.8 % (0.0-1.0); HEMATOCRIT 26.6 % (34.2-44.1); HEMOGLOBIN 9.3 g/dL (12.0-16.0); LYMPHOCYTES # (AUTO) 0.9 (1.0-3.2); LYMPHOCYTES % 6.2 % (18.0-39.1); MEAN CORPUSCULAR HEMOGLOBIN 33.8 pg (28-32); MEAN CORPUSCULAR VOLUME 96.7 fL (81-99); MONOCYTES # (AUTO) 1.4 (0.2-0.8); MONOCYTES % 9.5 % (4.4-11.3); NEUTROPHILS # (AUTO) 12.1 (2.1-6.9); NEUTROPHILS % 82.4 % (38.7-80.0); PLATELET COUNT 61 x10e3/uL (140-360); RED BLOOD COUNT 2.75 x10e6/uL (3.6-5.1); RED CELL DISTRIBUTION WIDTH 12.6 % (11.7-14.4)
[2021-04-11] MEDS ORDERED: IOPAMIDOL 370 MG/ML 200 ML INFUS..BTL INJ ONE (16:51)
[2021-04-11] MEDS ORDERED: SODIUM CHLORIDE 0.9% 50ML 50 ML ONE (16:51)
[2021-04-11] MEDS: FUROSEMIDE INJ 10 MG/ML 4 ML VIAL IV SCH (17:29)
[2021-04-11] MEDS ORDERED: DEXMEDETOMIDINE 400MCG/NS100ML 100 ML IV ONE (18:37)
[2021-04-11] MEDS: HEPARIN 25,000 UNIT 1,100 UNIT in DEXTROSE 5% 250ML 250 ML IV SCH (19:30)
[2021-04-11] MEDS: TRAZODONE HCL 50 MG TAB PO SCH (21:00)
[2021-04-11] MEDS: FLUOXETINE HCL 20 MG CAP PO SCH (21:00)
[2021-04-11] MEDS: MELATONIN 3 MG TAB PO SCH (21:00)
[2021-04-12] VITALS (24 sets, daily range): BP systolic 67–182; BP diastolic 50–105
[2021-04-12] MEDS: ALBUTEROL/IPRATROPIUM 3 ML NEB NEB SCH ×6 (02:01→22:45)
[2021-04-12] MEDS ORDERED: SODIUM CHLORIDE 0.9% 50ML 50 ML ONE (03:46)
[2021-04-12] MEDS ORDERED: IOPAMIDOL 370 MG/ML 200 ML INFUS..BTL INJ ONE (03:46)
[2021-04-12] MEDS: Pantoprazole IV 40 MG in SODIUM CHLORIDE 0.9% 50ML 50 ML IV SCH ×5 (05:12→22:00)
[2021-04-12] MEDS: DEXMEDETOMIDINE 400MCG/NS100ML 100 ML IV PRN ×2 (05:12→09:18)
[2021-04-12] MEDS: METOCLOPRAMIDE HCL 10 MG/2ML VIAL IV SCH ×4 (05:47→18:00)
[2021-04-12] MEDS: FUROSEMIDE INJ 10 MG/ML 4 ML VIAL IV SCH (08:24)
[2021-04-12] MEDS ORDERED: POTASSIUM CHLORIDE 20 MEQ TAB CR PO STA (08:25)
[2021-04-12] MEDS: CLONAZEPAM 0.5 MG TAB PO PRN ×2 (08:25→21:15)
[2021-04-12] MEDS ORDERED: MAGNESIUM SULFATE 2GM/50ML 50 ML IV ONE (08:30)
[2021-04-12 08:42] LABS: ABG HCO3 28 mmol/L (22-26); ABG PCO2 38 mmHg (35-45); ABG PH 7.48 (7.35-7.45); ABG PO2 91 mmHg (80-105); ABG TCO2 29
[2021-04-12] MEDS: LOSARTAN POTASSIUM 25 MG TAB PO SCH (09:00)
[2021-04-12] MEDS: METOPROLOL SUCCINATE 50 MG TAB XL PO SCH ×2 (09:00→09:45)
[2021-04-12] MEDS: DOCUSATE SODIUM 100 MG CAP PO SCH ×2 (09:00→17:00)
[2021-04-12] MEDS: POLYETHYLENE GLYCOL 3350 17 GM PACK PO SCH ×2 (09:12→09:29)
[2021-04-12 09:18] LABS: BASOPHILS # (AUTO) 0.1 (0.0-0.1); BASOPHILS % 0.6 % (0.0-1.0); EOSINOPHILS % 0.1 % (0.0-6.0); HEMATOCRIT 24.2 % (34.2-44.1); HEMOGLOBIN 8.5 g/dL (12.0-16.0); LYMPHOCYTES # (AUTO) 1.2 (1.0-3.2); LYMPHOCYTES % 8.6 % (18.0-39.1); MEAN CORPUSCULAR HGB CONC 35.1 g/dL (31-35); MEAN CORPUSCULAR VOLUME 96.8 fL (81-99); MONOCYTES % 7.1 % (4.4-11.3); NEUTROPHILS # (AUTO) 11.7 (2.1-6.9); NEUTROPHILS % 80.8 % (38.7-80.0); PLATELET COUNT 65 x10e3/uL (140-360); RED CELL DISTRIBUTION WIDTH 12.7 % (11.7-14.4)
[2021-04-12] MEDS: DOXYCYCLINE HYCLATE TABLET 100 MG TAB PO SCH (09:28)
[2021-04-12 09:38] LABS: MAGNESIUM 1.2 MG/DL (1.3-2.1); PHOSPHORUS 2.6 MG/DL (2.3-4.7)
[2021-04-12] MEDS ORDERED: SUCCINYLCHOLINE CHLORIDE 20 MG/ML 10ML VIAL ONE (09:38)
[2021-04-12] MEDS ORDERED: ETOMIDATE 2 MG/ML 10 ML INJ IV ONE (09:38)
[2021-04-12] MEDS ORDERED: MIDAZOLAM HCL 2 MG/2 ML VIAL ONE (09:38)
[2021-04-12 09:40] LABS: ALBUMIN 2.6 g/dL (3.5-5.0); ALBUMIN/GLOBULIN RATIO 0.7 (0.8-2.0); ANION GAP 16.2 mmol/L (8-16); CALCIUM 8.2 mg/dL (8.4-10.2); CREATININE, SERUM 0.54 mg/dL (0.57-1.11); POTASSIUM 3.2 mmol/L (3.5-5.1)
[2021-04-12] MEDS: NOREPINEPHRINE 8 MG/D5W 250 ML 250 ML IV SCH (09:45)
[2021-04-12 10:00] LABS: INR 1.14; PROTHROMBIN TIME 15.1 seconds (11.9-14.5)
[2021-04-12] MEDS ORDERED: POTASSIUM CHLORIDE 20MEQ/100ML 200 ML IV ONE ×2 (10:00→16:00)
[2021-04-12] MEDS: ACETAMINOPHEN 325 MG TAB PO PRN ×2 (11:30→13:41)
[2021-04-12] MEDS ORDERED: Vancomycin IV 1 GM in SODIUM CHLORIDE 0.9% 250ML 250 ML IV SCH (12:00)
[2021-04-12] MEDS: MEROPENEM 500 MG in SODIUM CHLORIDE 0.9% 50ML 50 ML IV SCH ×2 (12:59→16:10)
[2021-04-12] MEDS ORDERED: ALBUMIN 25% 25GM 100ML 0.25 GM/ML BTL IV ONE (14:45)
[2021-04-12] MEDS ORDERED: ALBUMIN 25% 25GM 100ML 100 ML IV ONE (15:00)
[2021-04-12] MEDS: LIDOCAINE 4% PATCH TP SCH (15:51)
[2021-04-12] MEDS: HEPARIN 25,000 UNIT 1,100 UNIT in DEXTROSE 5% 250ML 250 ML IV SCH (19:30)
[2021-04-12] MEDS: MELATONIN 3 MG TAB PO SCH (21:36)
[2021-04-12] MEDS: TRIMETHOPRIM/SULFAMETHOXAZOLE 40MG/5ML SUSP GT SCH (21:36)
[2021-04-12] MEDS: TRAZODONE HCL 50 MG TAB PO SCH (21:36)
[2021-04-12] MEDS: FLUOXETINE HCL 20 MG CAP PO SCH (21:36)
[2021-04-12] MEDS: HYDRALAZINE HCL 20 MG/ML VIAL IV PRN (22:55)
[2021-04-12] MEDS ORDERED: PROPOFOL IV EMULSION 10MG/ML 100 ML ONE (23:50)
[2021-04-13] VITALS (23 sets, daily range): BP systolic 61–136; BP diastolic 36–79
[2021-04-13 00:11] LABS: ABG PCO2 41 mmHg (35-45); ABG PH 7.41 (7.35-7.45); ABG PO2 89 mmHg (80-105)
[2021-04-13 00:12] LABS: ABG HCO3 26 mmol/L (22-26); ABG TCO2 27
[2021-04-13] MEDS ORDERED: METHYLPREDNISOLONE SOD SUCC 125 MG/2ML VIAL IV ONE (00:15)
[2021-04-13] MEDS ORDERED: LORAZEPAM INJ 2 MG/ML VIAL IV ONE (00:15)
[2021-04-13] MEDS ORDERED: LORAZEPAM INJ 2 MG/ML VIAL ONE ×2 (00:18→00:22)
[2021-04-13] MEDS: PROPOFOL IV EMULSION 10MG/ML 100 ML IV PRN ×2 (00:20→10:45)
[2021-04-13] MEDS ORDERED: METHYLPREDNISOLONE SOD SUCC 40 MG/ML VIAL 1ML ONE (00:22)
[2021-04-13] MEDS: LORAZEPAM INJ 2 MG/ML VIAL IV PRN (00:30)
[2021-04-13 00:47] LABS: ANION GAP 17.5 mmol/L (8-16); CALCIUM 8.1 mg/dL (8.4-10.2); CREATININE, SERUM 0.65 mg/dL (0.57-1.11); POTASSIUM 3.5 mmol/L (3.5-5.1)
[2021-04-13] MEDS: MEROPENEM 500 MG in SODIUM CHLORIDE 0.9% 50ML 50 ML IV SCH ×5 (02:02→23:54)
[2021-04-13] MEDS: ALBUTEROL/IPRATROPIUM 3 ML NEB NEB SCH ×2 (02:50→07:15)
[2021-04-13] MEDS: Pantoprazole IV 40 MG in SODIUM CHLORIDE 0.9% 50ML 50 ML IV SCH ×5 (06:32→23:54)
[2021-04-13] MEDS: METOCLOPRAMIDE HCL 10 MG/2ML VIAL IV SCH ×4 (06:32→17:10)
[2021-04-13 06:59] LABS: POTASSIUM 3.6 mmol/L (3.5-5.1)
[2021-04-13 07:00] LABS: ALBUMIN 3.1 g/dL (3.5-5.0); ALBUMIN/GLOBULIN RATIO 0.9 (0.8-2.0); ANION GAP 19.6 mmol/L (8-16); CALCIUM 8.1 mg/dL (8.4-10.2); CREATININE, SERUM 0.78 mg/dL (0.57-1.11)
[2021-04-13 07:09] LABS: BASOPHILS # (AUTO) 0.1 (0.0-0.1); BASOPHILS % 0.5 % (0.0-1.0); EOSINOPHILS % 0.1 % (0.0-6.0); HEMOGLOBIN 7.3 g/dL (12.0-16.0); LYMPHOCYTES # (AUTO) 0.7 (1.0-3.2); LYMPHOCYTES % 6.2 % (18.0-39.1); MEAN CORPUSCULAR HEMOGLOBIN 34.6 pg (28-32); MEAN CORPUSCULAR HGB CONC 35.4 g/dL (31-35); MEAN CORPUSCULAR VOLUME 97.6 fL (81-99); MONOCYTES # (AUTO) 0.5 (0.2-0.8); MONOCYTES % 4.9 % (4.4-11.3); NEUTROPHILS # (AUTO) 8.9 (2.1-6.9); RED BLOOD COUNT 2.11 x10e6/uL (3.6-5.1); RED CELL DISTRIBUTION WIDTH 12.8 % (11.7-14.4)
[2021-04-13 07:14] LABS: HEMATOCRIT 20.6 % (34.2-44.1); PLATELET COUNT 38 x10e3/uL (140-360)
[2021-04-13] MEDS ORDERED: ALBUTEROL/IPRATROPIUM 3 ML NEB NEB PRN (09:00)
[2021-04-13] MEDS: POLYETHYLENE GLYCOL 3350 17 GM PACK PO SCH ×2 (09:00→16:41)
[2021-04-13] MEDS: DOCUSATE SODIUM 100 MG CAP PO SCH ×2 (09:00→16:41)
[2021-04-13] MEDS: METOPROLOL SUCCINATE 50 MG TAB XL PO SCH (09:00)
[2021-04-13 09:30] LABS: ABG HCO3 25 mmol/L (22-26); ABG PCO2 32 mmHg (35-45); ABG PH 7.51 (7.35-7.45); ABG PO2 108 mmHg (80-105); ABG TCO2 26
[2021-04-13] MEDS: NOREPINEPHRINE 8 MG/D5W 250 ML 250 ML IV SCH (10:19)
[2021-04-13] MEDS: TRIMETHOPRIM/SULFAMETHOXAZOLE 40MG/5ML SUSP GT SCH ×2 (11:39→21:00)
[2021-04-13] MEDS ORDERED: LIDOCAINE HCL 4% 50 ML BTL ONE (12:06)
[2021-04-13] MEDS ORDERED: LIDOCAINE HCL 2% JELLY 5 ML TUBE ONE (12:06)
[2021-04-13] MEDS ORDERED: HEPARIN 25,000 UNIT 1,100 UNIT in DEXTROSE 5% 250ML 250 ML IV PRN (18:45)
[2021-04-13] MEDS: HEPARIN 25,000 UNIT 1,100 UNIT in DEXTROSE 5% 250ML 250 ML IV SCH (19:04)
[2021-04-13] MEDS: FLUOXETINE HCL 20 MG CAP PO SCH (21:47)
[2021-04-13] MEDS: TRAZODONE HCL 50 MG TAB PO SCH (21:47)
[2021-04-14] VITALS (13 sets, daily range): BP systolic 101–125; BP diastolic 40–65
[2021-04-14] MEDS: METOCLOPRAMIDE HCL 10 MG/2ML VIAL IV SCH ×5 (00:07→23:24)
[2021-04-14] MEDS: Pantoprazole IV 40 MG in SODIUM CHLORIDE 0.9% 50ML 50 ML IV SCH ×5 (04:33→23:24)
[2021-04-14 05:55] LABS: BASOPHILS # (AUTO) 0.1 (0.0-0.1); BASOPHILS % 0.5 % (0.0-1.0); HEMOGLOBIN 7.3 g/dL (12.0-16.0); MEAN CORPUSCULAR HEMOGLOBIN 35.1 pg (28-32); MEAN CORPUSCULAR HGB CONC 36.9 g/dL (31-35); MEAN CORPUSCULAR VOLUME 95.2 fL (81-99); MONOCYTES # (AUTO) 1.7 (0.2-0.8); MONOCYTES % 8.4 % (4.4-11.3); NEUTROPHILS # (AUTO) 15.1 (2.1-6.9); NEUTROPHILS % 75.8 % (38.7-80.0); RED BLOOD COUNT 2.08 x10e6/uL (3.6-5.1); RED CELL DISTRIBUTION WIDTH 13.1 % (11.7-14.4)
[2021-04-14] MEDS: MEROPENEM 500 MG in SODIUM CHLORIDE 0.9% 50ML 50 ML IV SCH ×4 (06:03→23:24)
[2021-04-14 06:06] LABS: HEMATOCRIT 19.8 % (34.2-44.1); PLATELET COUNT 42 x10e3/uL (140-360)
[2021-04-14 06:32] LABS: ALBUMIN 2.7 g/dL (3.5-5.0); ALBUMIN/GLOBULIN RATIO 0.8 (0.8-2.0); ANION GAP 14.5 mmol/L (8-16); CALCIUM 8.2 mg/dL (8.4-10.2); CREATININE, SERUM 0.62 mg/dL (0.57-1.11); MAGNESIUM 1.9 MG/DL (1.3-2.1); PHOSPHORUS 1.6 MG/DL (2.3-4.7); POTASSIUM 3.5 mmol/L (3.5-5.1)
[2021-04-14] MEDS: METOPROLOL SUCCINATE 50 MG TAB XL PO SCH (07:29)
[2021-04-14] MEDS ORDERED: MAGNESIUM SULFATE 2GM/50ML 50 ML IV ONE (08:15)
[2021-04-14] MEDS ORDERED: SODIUM PHOSPHATE IN 0.9 % NACL 30 MMOL in SODIUM CHLORIDE 0.9% 250ML 250 ML IV ONE ×2 (08:15)
[2021-04-14 08:55] LABS: LYMPHOCYTES % (MANUAL) 4 % (19-48); MONOCYTES % (MANUAL) 4 % (3.4-9.0); NEUTROPHILS % (MANUAL) 92 % (40-74)
[2021-04-14 08:56] LABS: PLATELET ESTIMATE MODERATELY DECREASED; PLATELET MORPHOLOGY COMMENT FEW LARGE; RBC MORPHOLOGY COMMENT NORMAL
[2021-04-14 08:59] LABS: ABG PCO2 34 mmHg (35-45); ABG PH 7.53 (7.35-7.45); ABG PO2 75 mmHg (80-105)
[2021-04-14] MEDS: DOCUSATE SODIUM 100 MG CAP PO SCH (09:00)
[2021-04-14] MEDS: POLYETHYLENE GLYCOL 3350 17 GM PACK PO SCH ×2 (09:00→14:41)
[2021-04-14 09:01] LABS: ABG HCO3 28 mmol/L (22-26); ABG TCO2 29
[2021-04-14] MEDS: TRIMETHOPRIM/SULFAMETHOXAZOLE 40MG/5ML SUSP GT SCH ×2 (09:07→21:00)
[2021-04-14] MEDS: NOREPINEPHRINE 8 MG/D5W 250 ML 250 ML IV SCH (09:45)
[2021-04-14] MEDS: IRON SUCROSE 100 MG in SODIUM CHLORIDE 0.9% 100 ML 100 ML IV SCH (11:30)
[2021-04-14] MEDS: PROPOFOL IV EMULSION 10MG/ML 100 ML IV PRN ×2 (13:50→18:26)
[2021-04-14] MEDS ORDERED: LORAZEPAM INJ 2 MG/ML VIAL IV ONE (14:30)
[2021-04-14] MEDS ORDERED: METHYLPREDNISOLONE SOD SUCC 125 MG/2ML VIAL IV ONE (14:45)
[2021-04-14] MEDS: SODIUM CHLORIDE 1 GM TAB NG SCH ×2 (15:26→23:23)
[2021-04-14] MEDS: HEPARIN 25,000 UNIT 1,100 UNIT in DEXTROSE 5% 250ML 250 ML IV SCH (19:32)
[2021-04-14] MEDS: TRAZODONE HCL 50 MG TAB PO SCH (23:23)
[2021-04-14] MEDS: FLUOXETINE HCL 20 MG CAP PO SCH (23:23)
[2021-04-15] VITALS (18 sets, daily range): BP systolic 80–133; BP diastolic 40–97
[2021-04-15] MEDS: METOCLOPRAMIDE HCL 10 MG/2ML VIAL IV SCH ×3 (06:20→17:21)
[2021-04-15] MEDS: MEROPENEM 500 MG in SODIUM CHLORIDE 0.9% 50ML 50 ML IV SCH ×3 (06:20→17:20)
[2021-04-15] MEDS: Pantoprazole IV 40 MG in SODIUM CHLORIDE 0.9% 50ML 50 ML IV SCH ×4 (06:20→19:07)
[2021-04-15 06:23] LABS: BASOPHILS # (AUTO) 0.1 (0.0-0.1); BASOPHILS % 0.3 % (0.0-1.0); HEMOGLOBIN 7.2 g/dL (12.0-16.0); LYMPHOCYTES # (AUTO) 1.5 (1.0-3.2); LYMPHOCYTES % 8.9 % (18.0-39.1); MEAN CORPUSCULAR HEMOGLOBIN 35.1 pg (28-32); MEAN CORPUSCULAR HGB CONC 35.8 g/dL (31-35); MONOCYTES % 6.1 % (4.4-11.3); NEUTROPHILS # (AUTO) 13.1 (2.1-6.9); NEUTROPHILS % 78.3 % (38.7-80.0); RED BLOOD COUNT 2.05 x10e6/uL (3.6-5.1); RED CELL DISTRIBUTION WIDTH 13.5 % (11.7-14.4)
[2021-04-15 06:28] LABS: HEMATOCRIT 20.1 % (34.2-44.1); PLATELET COUNT 45 x10e3/uL (140-360)
[2021-04-15 06:42] LABS: ALBUMIN 2.5 g/dL (3.5-5.0); ALBUMIN/GLOBULIN RATIO 0.6 (0.8-2.0); ANION GAP 13.3 mmol/L (8-16); CREATININE, SERUM 0.58 mg/dL (0.57-1.11); POTASSIUM 3.3 mmol/L (3.5-5.1)
[2021-04-15 07:09] LABS: LYMPHOCYTES % (MANUAL) 6 % (19-48); METAMYELOCYTES % (MANUAL) 1 % (0-0); MONOCYTES % (MANUAL) 6 % (3.4-9.0); NEUTROPHILS % (MANUAL) 86 % (40-74); PLATELET ESTIMATE MODERATELY DECREASED; PLATELET MORPHOLOGY COMMENT NORMAL; PROMYELOCYTES % (MANUAL) 1 % (0-0); RBC MORPHOLOGY COMMENT NORMAL
[2021-04-15] MEDS: TRIMETHOPRIM/SULFAMETHOXAZOLE 40MG/5ML SUSP GT SCH ×2 (08:27→21:00)
[2021-04-15] MEDS: SODIUM CHLORIDE 1 GM TAB NG SCH ×3 (08:27→22:31)
[2021-04-15] MEDS: POLYETHYLENE GLYCOL 3350 17 GM PACK PO SCH ×2 (08:27→17:20)
[2021-04-15 08:53] LABS: ABG HCO3 31 mmol/L (22-26); ABG PCO2 38 mmHg (35-45); ABG PH 7.52 (7.35-7.45); ABG PO2 62 mmHg (80-105); ABG TCO2 32
[2021-04-15] MEDS: METOPROLOL SUCCINATE 50 MG TAB XL PO SCH (09:00)
[2021-04-15] MEDS ORDERED: POTASSIUM CHLORIDE 20MEQ/100ML 200 ML IV ONE (11:00)
[2021-04-15] MEDS: IRON SUCROSE 100 MG in SODIUM CHLORIDE 0.9% 100 ML 100 ML IV SCH (11:53)
[2021-04-15] MEDS: HEPARIN 25,000 UNIT 1,100 UNIT in DEXTROSE 5% 250ML 250 ML IV SCH (17:22)
[2021-04-15] MEDS ORDERED: HEPARIN 25,000 UNIT DRIP IV ONE (17:29)
[2021-04-15] MEDS: PROPOFOL IV EMULSION 10MG/ML 100 ML IV PRN (19:08)
[2021-04-15] MEDS: NOREPINEPHRINE 8 MG/D5W 250 ML 250 ML IV SCH (22:30)
[2021-04-15] MEDS: TRAZODONE HCL 50 MG TAB PO SCH (22:31)
[2021-04-15] MEDS: FLUOXETINE HCL 20 MG CAP PO SCH (22:31)
[2021-04-16] VITALS (15 sets, daily range): BP systolic 92–130; BP diastolic 24–72
[2021-04-16] MEDS: MEROPENEM 500 MG in SODIUM CHLORIDE 0.9% 50ML 50 ML IV SCH ×5 (00:12→23:45)
[2021-04-16] MEDS: METOCLOPRAMIDE HCL 10 MG/2ML VIAL IV SCH ×5 (00:12→23:54)
[2021-04-16] MEDS: Pantoprazole IV 40 MG in SODIUM CHLORIDE 0.9% 50ML 50 ML IV SCH ×5 (05:32→21:24)
[2021-04-16 06:26] LABS: BASOPHILS % 0.2 % (0.0-1.0); LYMPHOCYTES # (AUTO) 2.4 (1.0-3.2); LYMPHOCYTES % 13.4 % (18.0-39.1); MEAN CORPUSCULAR HEMOGLOBIN 33.8 pg (28-32); MEAN CORPUSCULAR HGB CONC 32.7 g/dL (31-35); MEAN CORPUSCULAR VOLUME 103.6 fL (81-99); MONOCYTES # (AUTO) 0.7 (0.2-0.8); NEUTROPHILS # (AUTO) 13.2 (2.1-6.9); NEUTROPHILS % 73.5 % (38.7-80.0); RED BLOOD COUNT 1.95 x10e6/uL (3.6-5.1); RED CELL DISTRIBUTION WIDTH 14.2 % (11.7-14.4)
[2021-04-16 06:35] LABS: HEMATOCRIT 20.2 % (34.2-44.1); HEMOGLOBIN 6.6 g/dL (12.0-16.0); PLATELET COUNT 46 x10e3/uL (140-360)
[2021-04-16] MEDS ORDERED: FUROSEMIDE INJ 10 MG/ML 2 ML VIAL IV ONE (06:45)
[2021-04-16] MEDS ORDERED: SODIUM CHLORIDE 0.9% 250ML 250 ML IV ONE (06:45)
[2021-04-16 06:56] LABS: ALBUMIN 2.3 g/dL (3.5-5.0); ALBUMIN/GLOBULIN RATIO 0.6 (0.8-2.0); CREATININE, SERUM 0.6 mg/dL (0.57-1.11)
[2021-04-16] MEDS: METOPROLOL SUCCINATE 50 MG TAB XL PO SCH (07:25)
[2021-04-16] MEDS: TRIMETHOPRIM/SULFAMETHOXAZOLE 40MG/5ML SUSP GT SCH ×2 (08:41→21:29)
[2021-04-16] MEDS: POLYETHYLENE GLYCOL 3350 17 GM PACK PO SCH ×2 (08:41→16:13)
[2021-04-16] MEDS: NOREPINEPHRINE 8 MG/D5W 250 ML 250 ML IV SCH (09:45)
[2021-04-16] MEDS ORDERED: METHYLPREDNISOLONE SOD SUCC 40 MG/ML VIAL 1ML IV ONE (10:30)
[2021-04-16] MEDS: IRON SUCROSE 100 MG in SODIUM CHLORIDE 0.9% 100 ML 100 ML IV SCH (10:49)
[2021-04-16] MEDS: PROPOFOL IV EMULSION 10MG/ML 100 ML IV PRN ×2 (12:05→17:52)
[2021-04-16] MEDS ORDERED: HEPARIN 25,000 UNIT DRIP IV ONE (15:14)
[2021-04-16] MEDS: LORAZEPAM INJ 2 MG/ML VIAL IV PRN (15:15)
[2021-04-16] MEDS ORDERED: SODIUM CHLORIDE 0.9% 250ML 250 ML ONE (16:13)
[2021-04-16 17:42] LABS: HEMATOCRIT 25.3 % (34.2-44.1); HEMOGLOBIN 8.2 g/dL (12.0-16.0)
[2021-04-16] MEDS: HEPARIN 25,000 UNIT 1,100 UNIT in DEXTROSE 5% 250ML 250 ML IV SCH (17:54)
[2021-04-16] MEDS: DEXMEDETOMIDINE 400MCG/NS100ML 100 ML IV PRN (20:15)
[2021-04-16] MEDS ORDERED: DEXMEDETOMIDINE 400MCG/NS100ML 100 ML IV ONE (20:24)
[2021-04-16] MEDS: TRAZODONE HCL 50 MG TAB PO SCH (21:29)
[2021-04-16] MEDS: FLUOXETINE HCL 20 MG CAP PO SCH (21:29)
[2021-04-17] VITALS (26 sets, daily range): BP systolic 99–135; BP diastolic 49–78
[2021-04-17] MEDS: PROPOFOL IV EMULSION 10MG/ML 100 ML IV PRN ×3 (00:46→18:25)
[2021-04-17] MEDS: Pantoprazole IV 40 MG in SODIUM CHLORIDE 0.9% 50ML 50 ML IV SCH ×5 (03:28→23:51)
[2021-04-17 04:53] LABS: BASOPHILS # (AUTO) 0.1 (0.0-0.1); BASOPHILS % 0.4 % (0.0-1.0); LYMPHOCYTES # (AUTO) 2.3 (1.0-3.2); LYMPHOCYTES % 11.9 % (18.0-39.1); MEAN CORPUSCULAR HEMOGLOBIN 32.4 pg (28-32); MEAN CORPUSCULAR VOLUME 101.2 fL (81-99); MONOCYTES # (AUTO) 0.7 (0.2-0.8); MONOCYTES % 3.6 % (4.4-11.3); NEUTROPHILS # (AUTO) 14.8 (2.1-6.9); NEUTROPHILS % 78.1 % (38.7-80.0); RED BLOOD COUNT 2.47 x10e6/uL (3.6-5.1); RED CELL DISTRIBUTION WIDTH 15.4 % (11.7-14.4)
[2021-04-17 04:56] LABS: PLATELET COUNT 47 x10e3/uL (140-360)
[2021-04-17] MEDS: MEROPENEM 500 MG in SODIUM CHLORIDE 0.9% 50ML 50 ML IV SCH ×4 (05:03→23:46)
[2021-04-17 05:06] LABS: ALBUMIN 2.3 g/dL (3.5-5.0); ALBUMIN/GLOBULIN RATIO 0.6 (0.8-2.0); ANION GAP 15.6 mmol/L (8-16); CALCIUM 8.6 mg/dL (8.4-10.2); CREATININE, SERUM 0.61 mg/dL (0.57-1.11); POTASSIUM 4.6 mmol/L (3.5-5.1)
[2021-04-17] MEDS: METOCLOPRAMIDE HCL 10 MG/2ML VIAL IV SCH ×4 (05:27→23:51)
[2021-04-17] MEDS: TRIMETHOPRIM/SULFAMETHOXAZOLE 40MG/5ML SUSP GT SCH ×2 (08:16→21:08)
[2021-04-17] MEDS: POLYETHYLENE GLYCOL 3350 17 GM PACK PO SCH ×2 (08:21→17:29)
[2021-04-17] MEDS: METOPROLOL SUCCINATE 50 MG TAB XL PO SCH (08:21)
[2021-04-17] MEDS: DEXMEDETOMIDINE 400MCG/NS100ML 100 ML IV PRN ×2 (09:12→22:20)
[2021-04-17] MEDS: NOREPINEPHRINE 8 MG/D5W 250 ML 250 ML IV SCH (09:45)
[2021-04-17] MEDS: IRON SUCROSE 100 MG in SODIUM CHLORIDE 0.9% 100 ML 100 ML IV SCH (10:14)
[2021-04-17] MEDS: HEPARIN 25,000 UNIT 1,100 UNIT in DEXTROSE 5% 250ML 250 ML IV SCH (17:35)
[2021-04-17] MEDS: TRAZODONE HCL 50 MG TAB PO SCH (21:00)
[2021-04-17] MEDS: FLUOXETINE HCL 20 MG CAP PO SCH (21:08)
[2021-04-18] VITALS (24 sets, daily range): BP systolic 99–130; BP diastolic 2–72
[2021-04-18] MEDS: PROPOFOL IV EMULSION 10MG/ML 100 ML IV PRN ×5 (00:29→21:20)
[2021-04-18] MEDS: ACETAMINOPHEN 325 MG TAB PO PRN (03:28)
[2021-04-18] MEDS: MEROPENEM 500 MG in SODIUM CHLORIDE 0.9% 50ML 50 ML IV SCH ×4 (05:15→23:04)
[2021-04-18] MEDS: METOCLOPRAMIDE HCL 10 MG/2ML VIAL IV SCH ×3 (05:41→16:19)
[2021-04-18] MEDS: Pantoprazole IV 40 MG in SODIUM CHLORIDE 0.9% 50ML 50 ML IV SCH ×5 (05:41→22:28)
[2021-04-18 05:47] LABS: BASOPHILS # (AUTO) 0.1 (0.0-0.1); BASOPHILS % 0.4 % (0.0-1.0); EOSINOPHILS # (AUTO) 0.1 (0.0-0.4); EOSINOPHILS % 0.4 % (0.0-6.0); HEMATOCRIT 25.5 % (34.2-44.1); HEMOGLOBIN 8.3 g/dL (12.0-16.0); LYMPHOCYTES # (AUTO) 2.2 (1.0-3.2); LYMPHOCYTES % 12.2 % (18.0-39.1); MEAN CORPUSCULAR HEMOGLOBIN 33.2 pg (28-32); MEAN CORPUSCULAR HGB CONC 32.5 g/dL (31-35); MONOCYTES # (AUTO) 0.6 (0.2-0.8); NEUTROPHILS # (AUTO) 14.2 (2.1-6.9); NEUTROPHILS % 77.1 % (38.7-80.0); PLATELET COUNT 61 x10e3/uL (140-360); RED CELL DISTRIBUTION WIDTH 15.8 % (11.7-14.4)
[2021-04-18 06:19] LABS: ALBUMIN 2.2 g/dL (3.5-5.0); ALBUMIN/GLOBULIN RATIO 0.5 (0.8-2.0); CALCIUM 8.4 mg/dL (8.4-10.2); CREATININE, SERUM 0.61 mg/dL (0.57-1.11)
[2021-04-18 08:00] LABS: ANISOCYTOSIS SLIGHT; BAND NEUTROPHILS % (MANUAL) 3 %; HYPOCHROMASIA SLIGHT; LYMPHOCYTES % (MANUAL) 6 % (19-48); MONOCYTES % (MANUAL) 2 % (3.4-9.0); NEUTROPHILS % (MANUAL) 89 % (40-74); NUCLEATED RED BLOOD CELLS 2; PLATELET ESTIMATE MODERATELY DECREASED; PLATELET MORPHOLOGY COMMENT NORMAL; RBC MORPHOLOGY COMMENT ABNORMAL
[2021-04-18] MEDS: TRIMETHOPRIM/SULFAMETHOXAZOLE 40MG/5ML SUSP GT SCH (08:27)
[2021-04-18] MEDS: POLYETHYLENE GLYCOL 3350 17 GM PACK PO SCH ×2 (08:27→16:19)
[2021-04-18] MEDS: METOPROLOL SUCCINATE 50 MG TAB XL PO SCH (08:27)
[2021-04-18] MEDS: DEXMEDETOMIDINE 400MCG/NS100ML 100 ML IV PRN ×2 (08:28→15:57)
[2021-04-18 09:13] LABS: ABG PCO2 48 mmHg (35-45); ABG PH 7.39 (7.35-7.45)
[2021-04-18 09:14] LABS: ABG HCO3 28 mmol/L (22-26); ABG PO2 70 mmHg (80-105); ABG TCO2 30
[2021-04-18] MEDS: NOREPINEPHRINE 8 MG/D5W 250 ML 250 ML IV SCH (09:45)
[2021-04-18] MEDS ORDERED: HEPARIN 25,000 UNIT 1,100 UNIT in DEXTROSE 5% 250ML 250 ML IV SCH (10:15)
[2021-04-18] MEDS: IRON SUCROSE 100 MG in SODIUM CHLORIDE 0.9% 100 ML 100 ML IV SCH (10:37)
[2021-04-18] MEDS ORDERED: SODIUM CHLORIDE 0.9% 250ML 250 ML ONE (12:08)
[2021-04-18] MEDS: TRAZODONE HCL 50 MG TAB PO SCH (21:00)
[2021-04-18] MEDS: FLUOXETINE HCL 20 MG CAP PO SCH (21:22)
[2021-04-19] VITALS (24 sets, daily range): BP systolic 56–156; BP diastolic 17–96
[2021-04-19] MEDS: METOCLOPRAMIDE HCL 10 MG/2ML VIAL IV SCH ×4 (00:34→18:00)
[2021-04-19] MEDS: PROPOFOL IV EMULSION 10MG/ML 100 ML IV PRN ×3 (01:50→13:19)
[2021-04-19] MEDS: Pantoprazole IV 40 MG in SODIUM CHLORIDE 0.9% 50ML 50 ML IV SCH ×4 (04:00→19:00)
[2021-04-19] MEDS: MEROPENEM 500 MG in SODIUM CHLORIDE 0.9% 50ML 50 ML IV SCH ×2 (05:02→11:18)
[2021-04-19] MEDS: NOREPINEPHRINE 8 MG/D5W 250 ML 250 ML IV SCH (06:24)
[2021-04-19 06:25] LABS: BASOPHILS # (AUTO) 0.1 (0.0-0.1); BASOPHILS % 0.4 % (0.0-1.0); EOSINOPHILS % 0.1 % (0.0-6.0); HEMATOCRIT 26.3 % (34.2-44.1); LYMPHOCYTES % 9.6 % (18.0-39.1); MEAN CORPUSCULAR HEMOGLOBIN 33.1 pg (28-32); MEAN CORPUSCULAR HGB CONC 30.4 g/dL (31-35); MEAN CORPUSCULAR VOLUME 108.7 fL (81-99); MONOCYTES # (AUTO) 0.9 (0.2-0.8); MONOCYTES % 4.4 % (4.4-11.3); NEUTROPHILS # (AUTO) 16.4 (2.1-6.9); NEUTROPHILS % 77.4 % (38.7-80.0); PLATELET COUNT 83 x10e3/uL (140-360); RED BLOOD COUNT 2.42 x10e6/uL (3.6-5.1); RED CELL DISTRIBUTION WIDTH 16.2 % (11.7-14.4)
[2021-04-19 06:51] LABS: ALBUMIN 2.2 g/dL (3.5-5.0); ALBUMIN/GLOBULIN RATIO 0.5 (0.8-2.0); ANION GAP 18.2 mmol/L (8-16); CALCIUM 8.8 mg/dL (8.4-10.2); CREATININE, SERUM 0.82 mg/dL (0.57-1.11)
[2021-04-19 07:08] LABS: POTASSIUM 6.2 mmol/L (3.5-5.1)
[2021-04-19] MEDS ORDERED: SOD POLYSTYRENE SULFONATE SUSP 15 GM/60 ML BTL ONE ×2 (08:04→08:07)
[2021-04-19] MEDS ORDERED: SOD POLYSTYRENE SULFONATE SUSP 15 GM/60 ML BTL PO ONE (08:15)
[2021-04-19] MEDS ORDERED: FUROSEMIDE INJ 10 MG/ML 2 ML VIAL IV ONE (08:15)
[2021-04-19 08:23] LABS: LYMPHOCYTES % (MANUAL) 7 % (19-48); METAMYELOCYTES % (MANUAL) 1 % (0-0); MONOCYTES % (MANUAL) 5 % (3.4-9.0); MYELOCYTES % (MANUAL) 1 % (0-0); NEUTROPHILS % (MANUAL) 86 % (40-74); NUCLEATED RED BLOOD CELLS 4
[2021-04-19 08:25] LABS: ANISOCYTOSIS SLIGHT; PLATELET ESTIMATE ADEQUATE; PLATELET MORPHOLOGY COMMENT FEW LARGE; RBC MORPHOLOGY COMMENT ABNORMAL
[2021-04-19] MEDS: POLYETHYLENE GLYCOL 3350 17 GM PACK PO SCH ×2 (10:02→17:00)
[2021-04-19] MEDS ORDERED: HEPARIN 25,000 UNIT 1,100 UNIT in DEXTROSE 5% 250ML 250 ML IV PRN (10:15)
[2021-04-19] MEDS ORDERED: DEXTROSE 50% SYRINGE 50 ML IV ONE (10:15)
[2021-04-19] MEDS ORDERED: INSULIN REGULAR, HUMAN 100 UNIT/1 ML IV ONE (10:15)
[2021-04-19] MEDS: IRON SUCROSE 100 MG in SODIUM CHLORIDE 0.9% 100 ML 100 ML IV SCH (10:55)
[2021-04-19] MEDS ORDERED: HEPARIN 25,000 UNIT DRIP IV ONE (13:26)
[2021-04-19] MEDS ORDERED: MICAFUNGIN SODIUM 100 ML IV SCH (14:00)
[2021-04-19] MEDS ORDERED: Morphine 2mg Syringe 2 MG/ML SYR IV PRN (18:30)
[2021-04-19] MEDS ORDERED: LORAZEPAM INJ 2 MG/ML VIAL IV PRN (18:30)
[2021-04-19] MEDS ORDERED: MEROPENEM 500 MG in SODIUM CHLORIDE 0.9% 50ML 50 ML IV SCH (19:00)
== END 2021-04-19 23:05 | disposition expired | DRG 207 ==
LOC: FSED 12:40 → ERHOLD 16:48 → ICU 04-02 → MED/SURG 04-09 11:50 → ICU 04-11 18:08
PROVIDERS: ADMIT Internal Medicine; ATTEND Internal Medicine
PROC: 30233R1 Transfusion of Nonautologous Platelets into Peripheral Vein, Percutaneous Approach (ICD-10-PCS; 2021-04-08)
PROC: 02HV33Z Insertion of Infusion Device into Superior Vena Cava, Percutaneous Approach (ICD-10-PCS; 2021-04-12)
PROC: 3E043XZ Introduction of Vasopressor into Central Vein, Percutaneous Approach (ICD-10-PCS; 2021-04-12)
PROC: 5A1955Z Respiratory Ventilation, Greater than 96 Consecutive Hours (ICD-10-PCS; 2021-04-12)
PROC: 0BH17EZ Insertion of Endotracheal Airway into Trachea, Via Natural or Artificial Opening (ICD-10-PCS; 2021-04-12)
PROC: 0BD68ZX Extraction of Right Lower Lobe Bronchus, Via Natural or Artificial Opening Endoscopic, Diagnostic (ICD-10-PCS; 2021-04-13)
PROC: 0B9F8ZX Drainage of Right Lower Lung Lobe, Via Natural or Artificial Opening Endoscopic, Diagnostic (ICD-10-PCS; principal; 2021-04-13 12:08)
PROC: 30233N1 Transfusion of Nonautologous Red Blood Cells into Peripheral Vein, Percutaneous Approach (ICD-10-PCS; 2021-04-16)
DX: I26.93 Single subsegmental thrombotic pulmonary embolism without acute cor pulmonale (principal); J18.9 Pneumonia, unspecified organism; G93.41 Metabolic encephalopathy; J80 Acute respiratory distress syndrome; D61.810 Antineoplastic chemotherapy induced pancytopenia; A41.9 Sepsis, unspecified organism; R65.21 Severe sepsis with septic shock; J69.0 Pneumonitis due to inhalation of food and vomit; K72.00 Acute and subacute hepatic failure without coma; B37.1 Pulmonary candidiasis; K28.4 Chronic or unspecified gastrojejunal ulcer with hemorrhage; C56.9 Malignant neoplasm of unspecified ovary; R18.8 Other ascites; E87.1 Hypo-osmolality and hyponatremia; F10.230 Alcohol dependence with withdrawal, uncomplicated; D62 Acute posthemorrhagic anemia; K59.00 Constipation, unspecified; F41.9 Anxiety disorder, unspecified; F32.A Depression, unspecified; Z20.822 Contact with and (suspected) exposure to COVID-19; Z85.3 Personal history of malignant neoplasm of breast; Z87.891 Personal history of nicotine dependence; I10 Essential (primary) hypertension; D69.59 Other secondary thrombocytopenia; T45.515A Adverse effect of anticoagulants, initial encounter; D63.8 Anemia in other chronic diseases classified elsewhere; E83.42 Hypomagnesemia; E87.6 Hypokalemia; K21.9 Gastro-esophageal reflux disease without esophagitis; T45.1X5A Adverse effect of antineoplastic and immunosuppressive drugs, initial encounter; E87.5 Hyperkalemia; T36.8X5A Adverse effect of other systemic antibiotics, initial encounter; Y92.230 Patient room in hospital as the place of occurrence of the external cause; R10.10 Upper abdominal pain, unspecified; Z66 Do not resuscitate
CPT/HCPCS: 31622; 36415; 36569; 36600; 70450; 71045; 71260; 74018; 76705; 78227; 80048; 80053; 80061; 82140; 82270; 82550; 82553; 82607; 82728; 82746; 82805; 82947; 82948; 83036; 83540; 83605; 83735; 83880; 84100; 84132; 84146; 84295; 84436; 84439; 84443; 84466; 84479; 84481; 84484; 84520; 84550; 85007; 85014; 85018; 85025; 85027; 85384; 85610; 85730; 86022; 86304; 86850; 86900; 86920; 87015; 87040; 87070; 87102; 87116; 87205; 87206; 87278; 87335; 87449; 93005; 93306; 94002; 94003; 94640; 94660; 95812; 97139; 99284; A9537; J0330; J0360; J0456; J0692; J1442; J1650; J1756; J1817; J1940; J2001; J2060; J2185; J2248; J2250; J2270; J2405; J2550; J2765; J2920; J2930; J3411; J3475; J3480; J7030; J7050; J7799; P9016; P9034; P9047; Q9967; U0002